=== PATIENT | female | born 1925 | race Caucasian/White ===

== ENCOUNTER 2016-06-13 15:31 | Observation (INO) ==
[2016-06-13] MEDS ORDERED: Ondansetron ODT 4 MG TAB.RAPDIS SL ONE (15:36)
[2016-06-13] MEDS ORDERED: *HR* Morphine 2 MG/ML SYRINGE IVP ONE (15:36)
[2016-06-13] MEDS ORDERED: *HR* FentaNYL (PF) 100 MCG/2 ML VIAL IVP ONE ×2 (15:51→19:59)
--- NOTE | 2016-06-13 15:53 | Emergency Department Note ---
Disposition Clinical Impression: Total bilirubin, elevated, Elevated LFTs, Elevated alkaline phosphatase level, Choledocholithiasis Disposition: Admitted As Inpatient Condition: Fair Referrals: Thony Perez Jr, MD [Primary Care Provider] - Forms: ED Satisfaction Letter Time of Disposition: 18:20 Chest Pain HPI - General Chief Complaint: ED Chest Pain Stated Complaint: CP Time Seen by Provider: 06/13/16 15:34 Source: patient, EMS Mode of arrival: EMS Limitations: no limitations Vital Signs Reviewed: Yes Nursing Notes Reviewed: Yes - History of Present Illness HPI Narrative: Patient is an 89-year-old female past medical history of hypertension, previous GI bleed, cholelithiasis. She presents today due to right upper quadrant pain that radiates into her chest. She states that she has had previous episodes of biliary colic and was told that she has cholelithiasis. She started having right upper quadrant pain that radiates into her chest around noon today. She has not eaten anything today and some breakfast. She admits to some mild nausea ; denies any vomiting, shortness of breath, sweating, fevers, change in bowel or bladder habits, burning with urination or blood in urine. She is concerned that this could be her gallbladder causing pain. Denies any previous TN, stents. She is requesting not to receive NSAIDs due to previous GI bleed, does not want dilaudid or morphine. Severity scale (1-10): 8 - Related Data Allergies Allergy/AdvReac Type Severity Reaction Status Date / Time No Known Allergies Allergy Verified 04/24/16 15:58 All systems ED: reviewed and negative except as stated. Constitutional: Denies: fever Cardiovascular: Reports: chest pain. Denies: palpitations Respiratory: Denies: cough, dyspnea, wheezes Gastrointestinal: Reports: abdominal pain, nausea. Denies: vomiting, diarrhea, constipation, hematemesis, melena, hematochezia Genitourinary: Denies: urgency, dysuria, frequency, hematuria Musculoskeletal: Denies: back pain Integumentary: Denies: rash Neurological: Denies: headache, weakness, numbness, paresthesias Chest Pain PMH - Past Medical History Medical history: Reports: GI bleed, hypertension Psychiatric history: Reports: no psych history - Social History Smoking Status: Never smoker Alcohol use: Reports: none Drug use: Reports: none Physical Exam - General Limitations: no limitations General appearance: alert, in no apparent distress - Head Head exam: atraumatic, normocephalic, normal inspection - Eye Eye exam: Present: normal appearance, PERRL, EOMI - ENT ENT exam: normal exam, mucous membranes moist - Neck Neck exam: Present: normal inspection, full ROM, trachea midline. Absent: tenderness - Chest Chest inspection: Present: normal inspection, symmetric chest wall rise - Respiratory Respiratory exam: Present: normal lung sounds bilaterally. Absent: respiratory distress, wheezes - Cardiovascular Cardiovascular exam: Present: regular rate, normal rhythm, normal heart sounds - Abdominal Exam Abdominal exam: Present: soft, tenderness (Right upper quadrant, moderate). Absent: distention, guarding, rebound, rigidity, Mesa's sign, tenderness at McBurney's Point Abdominal tenderness: Present: RUQ, moderate - Extremities Exam Extremities exam: Present: normal inspection, full ROM. Absent: tenderness, pedal edema - Neurological Exam Neurological exam: Present: alert, oriented X3 - Psychiatric Psychiatric exam: Present: normal affect, normal mood - Skin Skin exam: Present: warm, dry, intact, normal color Course Course Narrative: On exam, patient had moderate right upper quadrant tenderness, negative Mesa sign. Current concern for biliary colic versus cholecystitis. Due to radiation to her chest, also concern for cardiac etiology. Will obtain EKG, chest x-ray, troponin, lipase, LFTs. We will also obtain CT the abdomen and pelvis for further evaluation. 18:16 Trop negative, CXR negative. Chest X-Ray 06/13/16 15:35 IMPRESSION: No acute cardiopulmonary disease D/ / Titi Dillon MD / Titi Dillon MD Interpreting Provider: Titi Dillon MD Abdomen/Pelvis CT 06/13/16 15:37 IMPRESSION: 1. Since the recent comparison gallbladder ultrasound, there is new mild dilatation of the common bile duct, which measures up to 1.2 cm. This is likely secondary to noncalcified choledocholithiasis in the central CBD. Further evaluation with MRCP or ERCP is recommended. 2. Cholelithiasis. No CT evidence of acute cholecystitis. 3. A 1.8 x 2.2 cm cystic pancreatic tail lesion, which previously measured 1.0 cm in 2007. 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 A follow-up pancreatic protocol MRI is suggested. 4. Nonobstructing punctate right renal calculus. 5. Severe diverticulosis. D/ / 06/13/2016 16:57:22 Titi Dillon MD / hever Interpreting Provider: Titi Dillon MD patient has elevated total bili, direct bili, elevated LFTs, elevated alkaline phosphatase. White blood cell count within normal limits. CT scan showed likely choledocolithiasis with widening of the common bile duct 1.[address] Eduardo was consulted and he has agreed to accept the patient to his service. We will likely perform cholecystectomy and may consult GI if there is any suspection of any further stones in CBD that cannot be removed. Patient informed and agreeable with this plan. Vital Signs Temperature 97.4 F L 06/13/16 15:32 Pulse Rate 77 06/13/16 15:32 Respiratory Rate 18 06/13/16 15:32 Blood Pressure 186/89 06/13/16 15:32 O2 Sat by Pulse Oximetry 95 06/13/16 15:32 Temperature 97.4 F L 06/13/16 15:32 Pulse Rate 81 06/13/16 18:13 Respiratory Rate 15 06/13/16 18:13 Blood Pressure 159/89 06/13/16 18:13 O2 Sat by Pulse Oximetry 96 06/13/16 18:13 Oxygen Delivery Oxygen Delivery Room Air Chest Pain - MDM Narrative Medical decision making narrative: On exam, patient had moderate right upper quadrant tenderness, negative Mesa sign. Current concern for biliary colic versus cholecystitis. Due to radiation to her chest, also concern for cardiac etiology. Will obtain EKG, chest x-ray, troponin, lipase, LFTs. We will also obtain CT the abdomen and pelvis for further evaluation. 18:16 patient has elevated total bili, direct bili, elevated LFTs, elevated alkaline phosphatase. White blood cell count within normal limits. CT scan showed likely choledocolithiasis with widening of the common bile duct 1.[address] Eduardo was consulted and he has agreed to accept the patient to his service. We will likely perform cholecystectomy and may consult GI if there is any suspection of any further stones in CBD that cannot be removed. Patient informed and agreeable with this plan. - Medical Records Medical records reviewed: Yes I reviewed the patient's medical records. - Lab Data Lab results reviewed: Yes I reviewed the patient's lab results. Result diagrams: 06/13/16 16:26 06/13/16 16:26 Lab Results 06/13/16 06/13/16 06/13/16 Range/Units 16:26 16:26 16:26 WBC 7.8 (4.3-11.1) K/mcL RBC 4.95 (3.82-4.97) M/mcL Hgb 14.3 (11.5-15.4) g/dL Hct 45.4 H (35.3-44.9) % MCV 91.7 (83.0-100.0) fL MCH 28.9 (28.0-33.3) pg MCHC 31.5 L (31.6-35.5) g/dL RDW 14.2 (11.5-14.5) % Plt Count 202 (140-400) K/mcL MPV 10.7 (9.4-12.4) fL Immature Gran % 0.4 (0-4) % Seg Neutrophils % 80.1 % Lymphocytes % 10.6 % Monocytes % 8.3 % Eosinophils % 0.3 % Basophils % 0.3 % Neutrophils # 6.3 (1.6-8.9) K/mcL Lymphocytes # 0.8 (0.6-4.6) K/mcL Monocytes # 0.7 (0.0-1.3) K/mcL Eosinophils # 0.0 (0.0-0.6) K/mcL Basophils # 0.0 (0.0-0.2) K/mcL PT 11.3 (9.4-12.1) Seconds INR 1.0 APTT 35.4 (26.0-36.0) Seconds Sodium 137 (136-145) mEq/L Potassium 4.0 (3.5-4.5) mEq/L Chloride 103 (98-109) mEq/L Carbon Dioxide 27 (19-29) mEq/L BUN 16 (7-20) mg/dL Creatinine 0.86 (0.57-1.11) mg/dL Est GFR ( Amer) > 60 (> 60) Est GFR (Non-Af Amer) > 60 (> 60) BUN/Creatinine Ratio 19 (6-26) Glucose 101 H (70-99) mg/dL Calculated Osmolality 285 (280-300) Calcium 11.3 H (8.6-10.8) mg/dL Total Bilirubin (0.2-1.2) mg/dL Direct Bilirubin (0.0-0.5) mg/dL Indirect Bilirubin (0.0-1.2) mg/dL AST (5-34) Units/L ALT (0-55) Units/L Alkaline Phosphatase (38-126) Units/L Troponin I (0-0.03) ng/mL Serum Total Protein (6.0-8.3) g/dL Albumin (3.5-5.0) g/dL Globulin (2.4-3.5) g/dL Albumin/Globulin Ratio (1.1-2.2) Lipase (8-78) Units/L 06/13/16 06/13/16 06/13/16 Range/Units 16:26 16:26 16:26 WBC (4.3-11.1) K/mcL RBC (3.82-4.97) M/mcL Hgb (11.5-15.4) g/dL Hct (35.3-44.9) % MCV (83.0-100.0) fL MCH (28.0-33.3) pg MCHC (31.6-35.5) g/dL RDW (11.5-14.5) % Plt Count (140-400) K/mcL MPV (9.4-12.4) fL Immature Gran % (0-4) % Seg Neutrophils % % Lymphocytes % % Monocytes % % Eosinophils % % Basophils % % Neutrophils # (1.6-8.9) K/mcL Lymphocytes # (0.6-4.6) K/mcL Monocytes # (0.0-1.3) K/mcL Eosinophils # (0.0-0.6) K/mcL Basophils # (0.0-0.2) K/mcL PT (9.4-12.1) Seconds INR APTT (26.0-36.0) Seconds Sodium (136-145) mEq/L Potassium (3.5-4.5) mEq/L Chloride (98-109) mEq/L Carbon Dioxide (19-29) mEq/L BUN (7-20) mg/dL Creatinine (0.57-1.11) mg/dL Est GFR ( Amer) (> 60) Est GFR (Non-Af Amer) (> 60) BUN/Creatinine Ratio (6-26) Glucose (70-99) mg/dL Calculated Osmolality (280-300) Calcium (8.6-10.8) mg/dL Total Bilirubin 1.7 H (0.2-1.2) mg/dL Direct Bilirubin 1.0 H (0.0-0.5) mg/dL Indirect Bilirubin 0.7 (0.0-1.2) mg/dL AST 150 H (5-34) Units/L ALT 151 H (0-55) Units/L Alkaline Phosphatase 200 H (38-126) Units/L Troponin I 0.00 (0-0.03) ng/mL Serum Total Protein 7.5 (6.0-8.3) g/dL Albumin 3.7 (3.5-5.0) g/dL Globulin 3.8 H (2.4-3.5) g/dL Albumin/Globulin Ratio 1.0 L (1.1-2.2) Lipase 1018 H (8-78) Units/L - Radiology Data Radiology results reviewed: Yes I reviewed the patient's radiology results. Chest X-Ray 06/13/16 15:35 IMPRESSION: No acute cardiopulmonary disease D/ / Titi Dillon MD / Titi Dillon MD Interpreting Provider: Titi Dillon MD Abdomen/Pelvis CT 06/13/16 15:37 IMPRESSION: 1. Since the recent comparison gallbladder ultrasound, there is new mild dilatation of the common bile duct, which measures up to 1.2 cm. This is likely secondary to noncalcified choledocholithiasis in the central CBD. Further evaluation with MRCP or ERCP is recommended. 2. Cholelithiasis. No CT evidence of acute cholecystitis. 3. A 1.8 x 2.2 cm cystic pancreatic tail lesion, which previously measured 1.0 cm in 2008. 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 A follow-up pancreatic protocol MRI is suggested. 4. Nonobstructing punctate right renal calculus. 5. Severe diverticulosis. D/ / 06/13/2016 16:57:22 Titi Dillon MD / hever Interpreting Provider: Titi Dillon MD - EKG Data EKG attestation: Yes I reviewed and interpreted this EKG. EKG results narrative: 06/13/2016 at 15:42. Normal sinus rhythm. Rate 78. OH 190. QRS 91. QTC 382. Normal axis. No acute ST elevation or depression. RSR prime in lead 3. [place] Situation: Demographics, MOA Background: Presenting Complaint, Relevant PMH, Meds, & Allergies Assessment: Vital Signs, Course and respsone to treatment, Exam Concerns, Patient/Family Expectation, Pertinant Lab Results, Outstanding Labs Recommendation: Barrier(s) to disposition, Recommendation based on pending studies, treatments, or consults [place] Report Given to: Dr. Jayce Mora Repor Time: 18:20
[2016-06-13 16:56] LABS: Basophils % 0.3 %; Eosinophils % 0.3 %; Hematocrit 45.4 % (35.3-44.9); Hemoglobin 14.3 g/dL (11.5-15.4); Immature Granulocytes % 0.4 % (0-4); Lymphocytes # 0.8 K/mcL (0.6-4.6); Lymphocytes % 10.6 %; Mean Corpuscular HGB Conc 31.5 g/dL (31.6-35.5); Mean Corpuscular Hemoglobin 28.9 pg (28.0-33.3); Mean Corpuscular Volume 91.7 fL (83.0-100.0); Mean Platelet Volume 10.7 fL (9.4-12.4); Monocytes # 0.7 K/mcL (0.0-1.3); Monocytes % 8.3 %; Neutrophils # 6.3 K/mcL (1.6-8.9); Platelet Count 202 K/mcL (140-400); Red Blood Count 4.95 M/mcL (3.82-4.97); Red Cell Distribution Width 14.2 % (11.5-14.5); Segmented Neutrophils % 80.1 %
[2016-06-13 17:17] LABS: BUN/Creatinine Ratio 19 (6-26); Blood Urea Nitrogen 16 mg/dL (7-20); Calcium 11.3 mg/dL (8.6-10.8); Carbon Dioxide 27 mEq/L (19-29); Chloride 103 mEq/L (98-109); Glucose 101 mg/dL (70-99); Osmolality,Calculated 285 (280-300); Sodium 137 mEq/L (136-145); eGFR For African Americans > 60 (> 60); eGFR For Non-African Americans > 60 (> 60)
[2016-06-13 17:30] LABS: Prothrombin Time 11.3 Seconds (9.4-12.1)
[2016-06-13 17:32] LABS: Activated Partial Thrombo Time 35.4 Seconds (26.0-36.0)
[2016-06-13 17:50] LABS: Albumin 3.7 g/dL (3.5-5.0); Bilirubin,Indirect 0.7 mg/dL (0.0-1.2); Bilirubin,Total 1.7 mg/dL (0.2-1.2); Globulin 3.8 g/dL (2.4-3.5); Total Protein 7.5 g/dL (6.0-8.3)
[2016-06-13] MEDS ORDERED: *HR* HYDROcodone/Acet 5/325 mg TABLET PO PRN (20:06)
[2016-06-13] MEDS ORDERED: *HR* Morphine 2 MG/ML SYRINGE IVP PRN (20:06)
[2016-06-13] MEDS ORDERED: Naloxone 0.4 MG/ML INJ IVP PRN (20:06)
[2016-06-13] MEDS ORDERED: Ondansetron ODT 4 MG TAB.RAPDIS SL PRN (20:06)
[2016-06-13] MEDS ORDERED: 0.9 % Sodium Chloride 1,000 ML IVC SCH (20:15)
[2016-06-13] MEDS ORDERED: traZODone 50 MG TABLET PO SCH (21:00)
[2016-06-14 04:22] LABS: Basophils % 0.2 %; Eosinophils % 0.5 %; Hematocrit 43.5 % (35.3-44.9); Hemoglobin 13.7 g/dL (11.5-15.4); Immature Granulocytes % 0.5 % (0-4); Lymphocytes # 0.9 K/mcL (0.6-4.6); Lymphocytes % 15.1 %; Mean Corpuscular HGB Conc 31.5 g/dL (31.6-35.5); Mean Corpuscular Hemoglobin 28.8 pg (28.0-33.3); Mean Corpuscular Volume 91.6 fL (83.0-100.0); Mean Platelet Volume 10.1 fL (9.4-12.4); Monocytes # 0.6 K/mcL (0.0-1.3); Monocytes % 9.7 %; Neutrophils # 4.3 K/mcL (1.6-8.9); Platelet Count 195 K/mcL (140-400); Red Blood Count 4.75 M/mcL (3.82-4.97); Red Cell Distribution Width 14.1 % (11.5-14.5)
[2016-06-14 04:49] LABS: BUN/Creatinine Ratio 17 (6-26); Blood Urea Nitrogen 13 mg/dL (7-20); Calcium 10.4 mg/dL (8.6-10.8); Carbon Dioxide 28 mEq/L (19-29); Chloride 105 mEq/L (98-109); Glucose 98 mg/dL (70-99); Osmolality,Calculated 290 (280-300); Potassium 3.9 mEq/L (3.5-4.5); Sodium 140 mEq/L (136-145); eGFR For African Americans > 60 (> 60); eGFR For Non-African Americans > 60 (> 60)
[2016-06-14] MEDS ORDERED: *HR* Heparin 5,000 UNIT/ML VIAL SQ SCH (06:00)
--- NOTE | 2016-06-14 07:05 | General Surg History&Physical ---
Date of Encounter: 06/14/16 Time of Encounter: 06:50 Assessment and Plan (1) Gallstone pancreatitis Current Visit: Yes Status: Acute The assessment and plan as outlined above was discussed with the patient and/or family members who expressed understanding and agreement. All questions were answered. The patient will require laparoscopic cholecystectomy and cholangiogram when her amylase and lipase values normalized. The bilirubin is 1.7. This may be transient or represent fixed choledocholithiasis. We will obtain a cholangiogram at time of laparoscopic cholecystectomy to assess the common bile duct. History of Present Illness Chief complaint: Abdominal pain HPI: Ms. Brown is a 89 year old female Was had multiple episodes of epigastric pain radiating through to her back. She experiences nausea but not vomiting. Over the last several months she has had increasing episodes. These last several hours. Yesterday she developed an epigastric pain episode radiating through to her back associated with nausea that did not resolve and she sought evaluation in the emergency department she was found to have cholelithiasis and a dilated common bile duct. She also had elevated lipase. She is admitted to the hospital with the diagnosis of gallstone pancreatitis. She denies shakes chills or fever. She has not previously had biliary surgery. She denies weight loss. Past Med Surg Social Fam HX - Past Medical History Medical history: GI bleed, hypertension, osteoporosis Psychiatric history: no psych history - Past Surgical History Surgical History: hip replacement (Hip fusion at age 21), hysterectomy, other - Social History Smoking Status: Never smoker Smokeless Tobacco Status: No Alcohol use: none Drug use: none - Family History Mother Living Status: Age at : 82 Cause of : Heart trouble Hx Family Cardiac Disorders: Yes (CHF, HTN) Hx Family Respiratory Disorders: No Hx Family Cancer: No Hx Family GI Disorders: No Hx Family Genitourinary Disorders: No Hx Family Endocrine Disorder: No Hx Family Musculoskeletal Disorders: No Hx Family Neuromuscular Disorders: No Hx Family Neurologic Disorders: No Hx Family HEENT Disorders: No Hx Family Autoimmune Disorders: No Hx Family Reproductive Disorders: No Hx Family Psychosocial Disorders: Yes (depression) Hx Family Medical Disorders: No Medications and Allergies Amlodipine Besylate 10 mg PO DAILY 06/13/16 [History] Furosemide [Lasix] 20 mg PO DAILY 06/13/16 [History] Losartan Potassium [Cozaar] 50 mg PO DAILY 06/13/16 [History] Meclizine HCl [Verticalm] 25 mg PO TID PRN 06/13/16 [History] Metoprolol [Lopressor] 25 mg PO BID 06/13/16 [History] Pantoprazole Sodium [Protonix] 40 mg PO DAILY 06/13/16 [History] TraZODone 50 mg PO HS 06/13/16 [History] Allergies No Known Allergies Allergy (Verified 04/24/16 15:58) Review of Systems All systems PM: A 10-system review of systems was performed and is negative for pertinent findings except as documented above in the HPI. General Surgery Exam Initial Vital Signs Temp Pulse Resp BP Pulse Ox 97.4 F L 77 18 186/89 95 06/13/16 15:32 06/13/16 15:32 06/13/16 15:32 06/13/16 15:32 06/13/16 15:32 - General physical appearance well developed, well nourished, no distress - Neck no masses, no bruits, trachea midline, no lymphadectomy, no venous distension - Respiratory normal expansion, normal respiratory effort, clear to percussion, clear to auscultation - Cardiovascular Cardiovascular exam: Present: RRR, no murmurs/rubs/gallops - Abdomen Abdomen general surgery: Present: bowel sounds present, soft, non tender - Neurologic Present: CN 2-12 grossly intact, normal coordination, normal sensation - Psychiatric Psychiatric general surgery: Present: appropriate, oriented to person, oriented to place, oriented to time, speech is normal, memory intact Results - Labs 06/14/16 03:50 06/14/16 03:50 Abnormal lab results MCHC 31.5 g/dL (31.6-35.5) L 06/14/16 03:50 POC Glucose 93 (58-89) H 06/14/16 05:56 Total Bilirubin 1.7 mg/dL (0.2-1.2) H 06/13/16 16:26 Direct Bilirubin 1.0 mg/dL (0.0-0.5) H 06/13/16 16:26 AST 150 Units/L (5-34) H 06/13/16 16:26 ALT 151 Units/L (0-55) H 06/13/16 16:26 Alkaline Phosphatase 200 Units/L (38-126) H 06/13/16 16:26 Globulin 3.8 g/dL (2.4-3.5) H 06/13/16 16:26 Albumin/Globulin Ratio 1.0 (1.1-2.2) L 06/13/16 16:26 Lipase 1018 Units/L (8-78) H 06/13/16 16:26 Diabetes panel 06/14/16 Range/Units 03:50 Sodium 140 (136-145) mEq/L Potassium 3.9 (3.5-4.5) mEq/L Chloride 105 (98-109) mEq/L Carbon Dioxide 28 (19-29) mEq/L BUN 13 (7-20) mg/dL Creatinine 0.78 (0.57-1.11) mg/dL Glucose 98 (70-99) mg/dL Calcium 10.4 (8.6-10.8) mg/dL Calcium panel 06/14/16 Range/Units 03:50 Calcium 10.4 (8.6-10.8) mg/dL Pituitary panel 06/14/16 Range/Units 03:50 Sodium 140 (136-145) mEq/L Potassium 3.9 (3.5-4.5) mEq/L Chloride 105 (98-109) mEq/L Carbon Dioxide 28 (19-29) mEq/L BUN 13 (7-20) mg/dL Creatinine 0.78 (0.57-1.11) mg/dL Glucose 98 (70-99) mg/dL Calcium 10.4 (8.6-10.8) mg/dL Adrenal panel 06/14/16 Range/Units 03:50 Sodium 140 (136-145) mEq/L Potassium 3.9 (3.5-4.5) mEq/L Chloride 105 (98-109) mEq/L Carbon Dioxide 28 (19-29) mEq/L BUN 13 (7-20) mg/dL Creatinine 0.78 (0.57-1.11) mg/dL Glucose 98 (70-99) mg/dL Calcium 10.4 (8.6-10.8) mg/dL All other labs normal.
[2016-06-14 07:08] LABS: Alanine Aminotransferase 226 Units/L (0-55); Albumin 3.3 g/dL (3.5-5.0); Alkaline Phosphatase 191 Units/L (38-126); Amylase 335 Units/L (25-125); Aspartate Amino Transferase 234 Units/L (5-34); Bilirubin,Direct 1.7 mg/dL (0.0-0.5); Bilirubin,Indirect 0.9 mg/dL (0.0-1.2); Bilirubin,Total 2.6 mg/dL (0.2-1.2); Globulin 3.4 g/dL (2.4-3.5); Lipase 472 Units/L (8-78); Total Protein 6.7 g/dL (6.0-8.3)
[2016-06-14] MEDS ORDERED: amLODIPine 5 MG TABLET PO SCH (09:00)
--- NOTE | 2016-06-14 12:11 | Anesthesia Evaluation PreOp ---
Date of Encounter: 06/14/16 Time of Encounter: 12:09 - Past History Planned Operation: Lap Karie re: gallstone pancreatiis Cardiac History: HTN (maintaine don Norvasc, Lasix, Cozaar, Metoprolol) Pulmonary History: Denies Any Significant HX FIRE HOSE CURER History: Other (Vertigo maitnained on Meclizine. Anxiety/Depression maintained on Trazadone) Other Medical History: GERD (Hx of GIB. Maintained on Protonix), Other ( Osteoporosis) Anesthesia History: No Prior Anesthetic Complications, Past Anesthesia (Hip replacement (hip fusion age 21), Hyster) Alcohol Use: none Drug use: none Medications and Allergies Amlodipine Besylate 10 mg PO DAILY 06/13/16 [History] Furosemide [Lasix] 20 mg PO DAILY 06/13/16 [History] Losartan Potassium [Cozaar] 50 mg PO DAILY 06/13/16 [History] Meclizine HCl [Verticalm] 25 mg PO TID PRN 06/13/16 [History] Metoprolol [Lopressor] 25 mg PO BID 06/13/16 [History] Pantoprazole Sodium [Protonix] 40 mg PO DAILY 06/13/16 [History] TraZODone 50 mg PO HS 06/13/16 [History] Allergies No Known Allergies Allergy (Verified 04/24/16 15:58) - Meds/Allergy Pre-op Review Medications Reviewed: Yes Allergies Reviewed: Yes ("No Meds that make me bleed" ex: ASA, Ibuprofen. [GIB]) Beta Blockers on Current Med List: Yes (Metoprolol) If Beta Blockers taken, Date/Time (Last Dose taken): 06/13/16 @ 6283 Anesthesia Results - Labs 06/14/16 03:50 06/14/16 03:50 Laboratory Tests 06/13/16 06/14/16 06/14/16 16:26 03:50 11:14 PT 11.3 INR 1.0 APTT 35.4 Sodium 140 Potassium 3.9 Chloride 105 Carbon Dioxide 28 BUN 13 Creatinine 0.78 Est GFR (Non-Af Amer) > 60 POC Glucose 79 - Imaging EKG: image reviewed (78 SR NSR) Anesthesia Exam Vital Signs Temp Pulse Resp BP Pulse Ox 06/14/16 09:52 98.7 F 73 16 147/76 97 06/14/16 03:30 97.4 F L 58 16 156/76 93 06/14/16 00:26 97.6 F 73 16 145/80 93 06/13/16 20:40 97.7 F 89 15 175/94 96 06/13/16 19:33 16 159/89 06/13/16 18:13 81 15 159/89 96 06/13/16 17:11 76 16 172/88 96 06/13/16 15:32 97.4 F L 77 18 186/89 97 Intake and Output 06/13/16 06/14/16 06/14/16 23:59 07:59 15:59 Intake Total 0 / 0 0 / 0 Output Total 450 / 450 200 / 200 300 / 300 Balance -450 / -450 -200 / -200 -300 / -300 Intake: Oral 0 / 0 0 / 0 Output: Urine 450 / 450 200 / 200 300 / 300 Other: # Voids 1 Weight 70.845 kg 70.789 kg Blood Glucose* 93 79 Patient Weight 06/14/16 23:59 Weight 70.789 kg Height: 5'8" Weight: 156# BMI = 24 NPO (# of Hours): MNoc - HEENT Pupil (Motor): Pupils equal, EOMI Mallampati: II Teeth: Normal Oral Opening: Greater than 3 - FIRE HOSE CURER LOC: Oriented FIRE HOSE CURER Motor: Normal RUE, Normal LUE, Normal Face, Deficit RLE ("Difficulty w/ Hips "), Deficit LLE FIRE HOSE CURER Sensory: Normal: RUE, LUE, RLE, LLE, Face - Cardiac Rhythm: Regular Murmur: None - Pulmonary Breath Sounds: bilateral Clear Respiratory Effort: Symmetrical Anesthesia Assess/Plan ASA Score: 2 (HTN, Osteoporosis) Anes Supervising Prov Stmt: Pt seen/evaluated, R&B discussed, questions answered and consent obtained. Emanuel Rico MD
[2016-06-14] MEDS ORDERED: Acetaminophen IV 1,000 MG/100 ML INFUS..BTL ONE (13:09)
[2016-06-14] MEDS ORDERED: *HR* Rocuronium Bromide 50 MG/5 ML VIAL ONE (13:12)
[2016-06-14] MEDS ORDERED: Lidocaine -MPF 2% 2 ML VIAL ONE (13:12)
[2016-06-14] MEDS ORDERED: *HR* Propofol 200 MG/20 ML VIAL IVP ONE (13:12)
[2016-06-14] MEDS ORDERED: Dexamethasone 4 MG/ML VIAL ONE (13:12)
[2016-06-14] MEDS ORDERED: *HR* Succinylcholine 200 MG/10 ML VIAL IVP ONE (13:12)
[2016-06-14] MEDS ORDERED: *HR* FentaNYL (PF) 100 MCG/2 ML VIAL ONE ×2 (13:12→13:55)
[2016-06-14] MEDS ORDERED: Ondansetron 4 MG/2 ML VIAL ONE (13:12)
[2016-06-14] MEDS ORDERED: Neostigmine Methylsulfate 3 MG/3 ML SYRINGE ONE (13:12)
[2016-06-14] MEDS ORDERED: Lidocaine -MPF 4% 5 ML AMPUL ONE (13:15)
[2016-06-14] MEDS ORDERED: Ondansetron 4 MG/2 ML VIAL IVP ONE (13:24)
[2016-06-14] MEDS ORDERED: Dexamethasone 4 MG/ML VIAL IVP ONE (13:24)
[2016-06-14] MEDS ORDERED: *HR* Morphine 2 MG/ML SYRINGE IVP PRN ×2 (13:24→15:34)
[2016-06-14] MEDS ORDERED: *HR* Labetalol 100 MG/20 ML MDV IVP PRN (13:24)
[2016-06-14] MEDS ORDERED: CefOXitin 2,000 MG VIAL IVPB ONE (13:34)
--- NOTE | 2016-06-14 14:25 | Operative Note ---
Date of procedure: 06/14/16 Pre-op diagnosis: Gallstone pancreatitis and obstructive jaundice Post-op diagnosis: other (Cholelithiasis and gallstone pancreatitis) Procedure: Laparoscopic cholecystectomy, cholangiogram Anesthesia: STANLEY Surgeon: Rolf Eduardo Estimated blood loss (cc): 30 Specimen: Gallbladder and contents Condition: stable Disposition: PACU Procedure in Detail: Laparoscopic cholecystectomy and intraoperative cholangiogram Operative procedure after informed consent and appropriate patient identification timeout the patient's take major operating suite and placed supine position given adequate general endotracheal anesthesia the abdomen is prepped and draped in sterile fashion utilizing ChloraPrep standard draping techniques timeout was taken patient is identified. I made a vertical midline incision below the umbilicus dissected down to level of fascia there are 2 traction stitches placed in the abdominal cavity was entered visually. A Ko trocar was placed in the abdomen and the abdomen was insufflated to 15 mmHg pressure CO2 the gallbladder was visualized. A placement 11 port in the subxiphoid area and 2 5 mm ports in the subcostal area. The gallbladder was grasped and elevated. A variety of blunt and sharp dissection techniques were used to isolate the cystic duct and cystic artery. The cystic artery was controlled with 2 surgical clips proximally and one distally and it was divided I placed a surgical clip on the neck the gallbladder and obtained an intraoperative cholangiogram using 10 mL of Isovue. Intraoperative cholangiogram was normal. The cholangiocatheter was removed and the cystic duct was controlled with 2 surgical clips proximally and was divided the gallbladder was removed from the gallbladder fossae using electrocautery. The gallbladder was removed through the #11 port site. I replaced the #11 port and irrigated with copious amounts of antibiotic containing solution. There is no evidence of bleeding or bile leak. All trochars were removed. Fascia was closed with 0 Vicryl skin with 2-0 and 4-0 Vicryl She tolerated the procedure well and was transferred to recovery in stable condition
[2016-06-14] MEDS ORDERED: Ondansetron ODT 4 MG TAB.RAPDIS SL PRN (15:34)
[2016-06-14] MEDS ORDERED: *HR* HYDROcodone/Acet 5/325 mg TABLET PO PRN (15:34)
[2016-06-14] MEDS ORDERED: Naloxone 0.4 MG/ML INJ IVP PRN (15:34)
[2016-06-14] MEDS ORDERED: 0.9 % Sodium Chloride 1,000 ML IVC SCH (15:34)
--- NOTE | 2016-06-14 18:19 | Electrocardiograph Report ---
[place] [id number] Test Date: 2016-06-13 Pat Name: Kindra Brown Department: 102 Room: 3A34 Gender: F Clay Burner: Liane : 1925 Requested By: Mik Brown Order Number: [id number] Reading MD: Mauro Blas MD Measurements Intervals [place] Rate: 78 P: 61 NH: 190 QRS: 29 QRSD: 91 T: 39 QT: 348 QTc: 382 Interpretive Statements SINUS RHYTHM Electronically Signed On 06-14-2016 18:18:06 EDT by Mauro Blas MD
[2016-06-14] MEDS: amLODIPine 5 MG TABLET PO SCH (19:16)
[2016-06-14] MEDS: *HR* Heparin 5,000 UNIT/ML VIAL SQ SCH (19:38)
[2016-06-14] MEDS ORDERED: traZODone 50 MG TABLET PO SCH (21:00)
[2016-06-15] MEDS: *HR* Heparin 5,000 UNIT/ML VIAL SQ SCH (05:57)
[2016-06-15] MEDS: amLODIPine 5 MG TABLET PO SCH (08:15)
[2016-06-15] MEDS ORDERED: amLODIPine 5 MG TABLET PO SCH (09:00)
[2016-06-15] MEDS ORDERED: Acetaminophen 325 MG TABLET PO PRN (12:53)
[2016-06-15 14:27] VITALS: BP 146/71
--- NOTE | 2016-06-15 14:48 | Discharge Summary ---
<Sugey Mathew Ray - Last Filed: 06/15/16 14:45> Date of Encounter: 06/15/16 Time of Encounter: 14:46 - Discharge Diagnosis (1) Gallstone pancreatitis Priority: Primary Status: Resolved (2) Elevated LFTs Priority: Secondary Status: Acute - Discharge Medications Home Medications: Amlodipine Besylate 10 mg PO DAILY 06/13/16 [History] Furosemide [Lasix] 20 mg PO DAILY 06/13/16 [History] Losartan Potassium [Cozaar] 50 mg PO DAILY 06/13/16 [History] Meclizine HCl [Verticalm] 25 mg PO TID PRN 06/13/16 [History] Metoprolol [Lopressor] 25 mg PO BID 06/13/16 [History] Pantoprazole Sodium [Protonix] 40 mg PO DAILY 06/13/16 [History] TraZODone 50 mg PO HS 06/13/16 [History] Acetaminophen [Tylenol] 650 mg PO Q6HR PRN #0 tablet 06/15/16 [Rx] Allergies/Adverse Reactions: Allergies No Known Allergies Allergy (Verified 04/24/16 15:58) General Surgery Exam Initial Vital Signs Temp Pulse Resp BP Pulse Ox 97.4 F L 77 18 186/89 95 06/13/16 15:32 06/13/16 15:32 06/13/16 15:32 06/13/16 15:32 06/13/16 15:32 - General physical appearance well developed, well nourished, no distress - Eyes normal ocular movement - ENT normal mucosa, atraumatic, normocephalic - Neck trachea midline - Respiratory normal respiratory effort, clear to auscultation - Cardiovascular Cardiovascular exam: Present: RRR, 15, 16 - Abdomen Abdomen general surgery: Present: bowel sounds present, soft, tender (Expected postoperative tenderness) - Incision Incision: Present: clean and dry, intact - Integumentary Integumentary general surgery: Present: warm and dry - Neurologic Present: CN 2-12 grossly intact - Psychiatric Psychiatric general surgery: Present: appropriate, oriented to person, oriented to place, oriented to time, speech is normal, memory intact Date of admission: 06/13/16 18:56 Primary care physician: Thony Perez Jr, MD Consults: 06/14/16 00:37 Consult to Teacher Advisor [CONS] Routine Reason for SW Consult: pt verbalizes need for SS consult to assist her with Home Health when d/c Discharging clinician: Rolf Eduardo (Robbie Mathew) Anticipated date of discharge: 06/15/16 - Patient Status Disposition: Home Health Service Condition: Good Functional capacity at discharge: independent ambulation Overall status at discharge: patient is progressing back to baseline - Discharge Instructions Follow Up With: Aurea Ceja CNP [Partnered Physician] - 06/21/16 10:40 am Sugey Mathew CNP [Advanced Practice Nurse] - 06/26/16 9:15 am (Surgery follow-up) Additional Instructions: #1 may shower, no tub bath for 2 weeks #2 wash incisions with soap and water and pat dry daily #3 no lifting, pushing, pulling more than 15 pounds for the next 2 weeks #4 no driving until off narcotics for 24 hours and able to safely react in the car #5 may climb stairs - Diet and Activity Activity: other (See additional instructions above) Diet: advance to your usual diet - Hospital Course Hospital course: Ms. Brown is a 89 year old female presented to the hospital with abdominal pain and was found to have gallstone pancreatitis. She was treated with supportive care while awaiting resolution of her pancreatitis. With resolution of her pancreatitis, she was taken to the operating room per Dr. Eduardo for laparoscopic cholecystectomy with cholangiogram. On postoperative day #1, she is tolerating her diet without nausea or vomiting, vital signs are stable and she is afebrile, pain is well-controlled, she is voiding and ambulating without difficulty. We will begin discharge planning at this time and plan for outpatient follow-up in the next 10-14 days. - Time Spent with Patient Total time spent providing and/or coordinating discharge services: Less than 30 minutes - Impressions ITS Impressions Cholangiogram,Operative 06/14/16 00:00 IMPRESSION: 1. 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 Underlying malignancy cannot entirely be excluded. Tissue sampling may be of benefit for further evaluation. 2. Intra and extrahepatic biliary ductal dilatation. D/ / 06/14/2016 14:15:44 Joel Gamez MD / Betzy Goetz Interpreting Provider: Joel Gamez MD - Attending Attestation I examined this patient and my medical decision-making was reviewed with the [employer]/PA/Advanced Practice Nurse/Resident Physician. I agree with the documented findings, disposition and treatment plan as described except to the extent set forth below. <Rofl Eduardo - Last Filed: 06/16/16 06:53> Date of Encounter: 06/16/16 - Discharge Diagnosis (1) Gallstone pancreatitis Status: Resolved General Surgery Exam Initial Vital Signs Temp Pulse Resp BP Pulse Ox 97.4 F L 77 18 186/89 95 06/13/16 15:32 06/13/16 15:32 06/13/16 15:32 06/13/16 15:32 06/13/16 15:32 Date of admission: 06/13/16 18:56 Primary care physician: Thony Perez Jr, MD Consults: 06/14/16 00:37 Consult to Teacher Advisor [CONS] Routine Reason for SW Consult: pt verbalizes need for SS consult to assist her with Home Health when d/c - Hospital Course Hospital course: Ms. Brown is a 89 year old female - Time Spent with Patient Total time spent providing and/or coordinating discharge services: - Impressions ITS Impressions Cholangiogram,Operative 06/14/16 00:00 IMPRESSION: 1. 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 Underlying malignancy cannot entirely be excluded. Tissue sampling may be of benefit for further evaluation. 2. Intra and extrahepatic biliary ductal dilatation. D/ / 06/14/2016 14:15:44 Joel Gamez MD / Betzy Goetz Interpreting Provider: Joel Gamez MD - Attending Attestation The patient is seen and evaluated and ready for discharge Rolf Eduardo MD FACS
--- NOTE | 2016-06-15 14:52 | Physician Discharge Referral ---
<Sugey Mathew - Last Filed: 06/15/16 14:51> Home Health/Hosp Referral Info Transfer to: Home Health Attending Provider: Dr. Rolf Eduardo Provider in Charge Post Discharge: PCP - Diagnosis (1) Gallstone pancreatitis Priority: Primary Status: Resolved (2) Elevated LFTs Priority: Secondary Status: Acute - Respiratory Orders None - Dressing/Wound Care Site: Abdomen Type of Dressing/Treatments w/Frequency: Evan with soap and water in the shower and pat dry daily - Diet/Nutrition Diet/Nutrition Orders: Regular - Activity Activity Orders: Up ad sierra, Ambulate - Services Needed Following services are medically necessary services: Nursing, Home Health Aide, Physical Therapy, Occupational Therapy - Transfer Medications Home Medications: Amlodipine Besylate 10 mg PO DAILY 06/13/16 [History] Furosemide [Lasix] 20 mg PO DAILY 06/13/16 [History] Losartan Potassium [Cozaar] 50 mg PO DAILY 06/13/16 [History] Meclizine HCl [Verticalm] 25 mg PO TID PRN 06/13/16 [History] Metoprolol [Lopressor] 25 mg PO BID 06/13/16 [History] Pantoprazole Sodium [Protonix] 40 mg PO DAILY 06/13/16 [History] TraZODone 50 mg PO HS 06/13/16 [History] Acetaminophen [Tylenol] 650 mg PO Q6HR PRN #0 tablet 06/15/16 [Rx] Allergies/Adverse Reactions: Allergies No Known Allergies Allergy (Verified 04/24/16 15:58) Certification: Further, I certify that my clinical findings support that this patient is homebound (i.e. absences from home require considerable and taxing effort and are for medical reasons or spiritism services or infrequently or short duration when for other reasons) because: Homebound Reason: Patient requires assistance of a person or device to safely leave home, Leaving home requires considerable and taxing effort due to condition Attestation: My signature below is to certify that this patient is under my care and that I, or nurse practitioner, or a physician's assistant store manager operations working with me, has a face-to -face encounter with this patient. <Rolf Eduardo - Last Filed: 06/16/16 06:54> - Diagnosis (1) Gallstone pancreatitis Status: Resolved - Respiratory Orders Smoking Cessation: Smoking cessation has been advised. For more information, call the [place] Tobacco Quit Line at 7-785-NDRQ-NOW. Certification: Further, I certify that my clinical findings support that this patient is homebound (i.e. absences from home require considerable and taxing effort and are for medical reasons or spiritism services or infrequently or short duration when for other reasons) because: Attestation: My signature below is to certify that this patient is under my care and that I, or nurse practitioner, or a physician's assistant store manager operations working with me, has a face-to -face encounter with this patient. The patient is seen and evaluated and is ready for discharge Rolf Eduardo MD FACS
== END 2016-06-15 16:53 | disposition home health service (06) ==
LOC: 3ANU 15:31 → EMEROO 15:31 → 3ANU 20:22
PROVIDERS: ADMIT Surgery; ATTEND Surgery

== ENCOUNTER 2017-06-12 15:59 | Observation (INO) ==
--- NOTE | 2017-06-12 16:11 | Emergency Department Note ---
Disposition Clinical Impression: Chest pain Disposition: Admitted As Inpatient Condition: Good Chest Pain HPI - General Chief Complaint: ED Chest Pain Stated Complaint: chest pain Time Seen by Provider: 06/12/17 16:09 Source: patient, family Limitations: no limitations Vital Signs Reviewed: Yes Nursing Notes Reviewed: Yes - History of Present Illness HPI Narrative: Patient is an 89-year-old female past medical history of GI bleed, hypertension , osteoporosis that presents for chest pain for the past 2 days. Patient said chest pain started yesterday morning. Was located across her entire chest.She denies any numbness or tingling left arm. The pain was pressure-like and lasted the entire day. Patient says she took an aspirin and had the pain relieved shortly afterwards. She said the pain started again this morning and lasted for about a minute and was located more on the back of her left shoulder. Both chest pain symptoms occurred while the patient was at rest. She does say that she has been short of breath for the past week. She denies any previous history of [place]. She denies any heart palpitations during the events. She does admit to a headache but denies any vision blurriness. She denies any swelling. Denies any recent illness, fever, or chills. Severity scale (1-10): 5 - Related Data Home Medications Medication Instructions Recorded Confirmed Amlodipine Besylate 10 mg PO DAILY 06/13/16 06/12/17 Losartan Potassium [Cozaar] 50 mg PO DAILY 06/13/16 06/12/17 Metoprolol [Lopressor] 25 mg PO BID 06/13/16 06/12/17 traZODone [TraZODone] 50 mg PO HS 06/13/16 06/12/17 Docusate Sodium [Dok] 200 mg PO HS 06/12/17 06/12/17 Allergies Allergy/AdvReac Type Severity Reaction Status Date / Time No Known Allergies Allergy Verified 06/12/17 18:50 Constitutional: Denies: fever, chills, weakness, weight change Cardiovascular: Reports: chest pain. Denies: palpitations, dyspnea on exertion , orthopnea, edema, syncope Respiratory: Reports: dyspnea. Denies: cough, wheezes Gastrointestinal: Reports: nausea. Denies: abdominal pain, vomiting, diarrhea, constipation, hematemesis, melena, hematochezia Chest Pain PMH - Past Medical History Medical history: Reports: GI bleed, hypertension, osteoporosis Surgical history: Reports: hip replacement (Hip fusion at age 21), hysterectomy , other Psychiatric history: Reports: no psych history - Social History Smoking Status: Never smoker Alcohol use: Reports: none Drug use: Reports: none Physical Exam - General Limitations: no limitations General appearance: alert, in no apparent distress - Chest Chest inspection: Present: normal inspection, symmetric chest wall rise. Absent : tenderness - Respiratory Respiratory exam: Present: normal lung sounds bilaterally. Absent: wheezes - Cardiovascular Cardiovascular exam: Present: regular rate, normal rhythm, normal heart sounds, +S1, +S2. Absent: +S3, +S4 - Abdominal Exam Abdominal exam: Present: soft, Non-Tender, normal bowel sounds. Absent: tenderness, distention, guarding, rebound, rigidity - Extremities Exam Extremities exam: Present: normal inspection, full ROM, normal capillary refill. Absent: tenderness, pedal edema, calf tenderness Course Course Narrative: Patient presents with atypicall type chest pain symptoms. EKG shows normal sinus rhythm with nonspecific ST depression in V5 and otherwise no acute ischemic changes when compared to prior EKG. Tropnin was negative. Given her HEART score of 4, we feel it would be appropriate for patient to be admitted for further evaluation and observation. Spoke to hospitalist Dr. Bustillo who agreed to admit the patient. Vital Signs Temperature 97.8 F 06/12/17 16:00 Pulse Rate 69 06/12/17 16:00 Respiratory Rate 18 06/12/17 16:00 Blood Pressure 184/94 06/12/17 16:00 O2 Sat by Pulse Oximetry 96 06/12/17 16:00 Temperature 97.9 F 06/12/17 22:38 Pulse Rate 67 06/12/17 22:38 Respiratory Rate 15 06/12/17 22:38 Blood Pressure 139/77 06/12/17 22:38 O2 Sat by Pulse Oximetry 96 06/12/17 22:38 Oxygen Delivery Oxygen Delivery Room Air Chest Pain - Lab Data Result diagrams: 06/12/17 16:23 06/12/17 16:21 Lab Results 06/12/17 06/12/17 06/12/17 Range/Units 16:21 16:23 16:23 WBC 6.5 (4.3-11.1) K/mcL RBC 5.16 H (3.82-4.97) M/mcL Hgb 16.0 H (11.5-15.4) g/dL Hct 49.2 H (35.3-44.9) % MCV 95.3 (83.0-100.0) fL MCH 31.0 (28.0-33.3) pg MCHC 32.5 (31.6-35.5) g/dL RDW 13.1 (11.5-14.5) % Plt Count 186 (140-400) K/mcL MPV 10.3 (9.4-12.4) fL Immature Gran % 0.3 (0-4) % Seg Neutrophils % 73.7 % Lymphocytes % 18.3 % Monocytes % 6.9 % Eosinophils % 0.5 % Basophils % 0.3 % Neutrophils # 4.8 (1.6-8.9) K/mcL Lymphocytes # 1.2 (0.6-4.6) K/mcL Monocytes # 0.5 (0.0-1.3) K/mcL Eosinophils # 0.0 (0.0-0.6) K/mcL Basophils # 0.0 (0.0-0.2) K/mcL PT 12.0 (9.4-12.1) Seconds INR 1.1 APTT 35.1 (26.0-36.0) Seconds Sodium 138 (136-145) mEq/L Potassium 4.2 (3.5-5.1) mEq/L Chloride 103 (98-107) mEq/L Carbon Dioxide 26 (23-29) mEq/L BUN 21 (8-23) mg/dL Creatinine 0.86 (0.60-1.20) mg/dL Est GFR ( Amer) > 60 (> 60) Est GFR (Non-Af Amer) > 60 (> 60) BUN/Creatinine Ratio 24 (6-26) Glucose 95 (70-105) mg/dL Calculated Osmolality 289 (280-300) Calcium 11.1 H (8.6-10.3) mg/dL Troponin I < 0.03 (< 0.04) ng/mL - EKG Data EKG attestation: Yes I reviewed and interpreted this EKG. EKG shows normal: sinus rhythm, axis, intervals, QRS complexes, ST-T waves Rate: normal Rhythm: NSR [place]/QRS: normal Heart Score - Score History: Slightly Suspicious EKG: Non Specific repolarisation Disturbance Age: Greater than 65 Risk Factors: 1-2 risk factors Troponin: Less than normal limit HEART Score Total: 4 Attestation Statement - Attestation Attestation: I, Cl Flores, examined this patient and my medical decision-making was reviewed with the [employer]AL[employer]ISITION DIRECTOR/PA/Advanced Practice Nurse/Resident Physician. I agree with the documented findings, disposition and treatment plan as described except to the extent set forth below. 89-year-old female presents emergency Department with acute onset chest pain. Patient states the chest pain is intermittent, associated with nausea. Never had a cardiac evaluation in the past. Initial troponin negative. EKG did not show evidence of STEMI. Patient has a heart score of 4. She will be admitted to the hospitalist for further care and evaluation.
[2017-06-12 16:44] LABS: Basophils % 0.3 %; Eosinophils % 0.5 %; Hematocrit 49.2 % (35.3-44.9); Immature Granulocytes % 0.3 % (0-4); Lymphocytes # 1.2 K/mcL (0.6-4.6); Lymphocytes % 18.3 %; Mean Corpuscular HGB Conc 32.5 g/dL (31.6-35.5); Mean Corpuscular Volume 95.3 fL (83.0-100.0); Mean Platelet Volume 10.3 fL (9.4-12.4); Monocytes # 0.5 K/mcL (0.0-1.3); Monocytes % 6.9 %; Neutrophils # 4.8 K/mcL (1.6-8.9); Platelet Count 186 K/mcL (140-400); Red Blood Count 5.16 M/mcL (3.82-4.97); Red Cell Distribution Width 13.1 % (11.5-14.5); Segmented Neutrophils % 73.7 %
[2017-06-12 16:55] LABS: Troponin I < 0.03 ng/mL (< 0.04)
[2017-06-12 16:59] LABS: INR 1.1
[2017-06-12 17:01] LABS: Activated Partial Thrombo Time 35.1 Seconds (26.0-36.0)
[2017-06-12 17:33] LABS: BUN/Creatinine Ratio 24 (6-26); Blood Urea Nitrogen 21 mg/dL (8-23); Calcium 11.1 mg/dL (8.6-10.3); Carbon Dioxide 26 mEq/L (23-29); Chloride 103 mEq/L (98-107); Glucose 95 mg/dL (70-105); Osmolality,Calculated 289 (280-300); Potassium 4.2 mEq/L (3.5-5.1); Sodium 138 mEq/L (136-145); eGFR For African Americans > 60 (> 60); eGFR For Non-African Americans > 60 (> 60)
[2017-06-12] MEDS ORDERED: Acetaminophen 325 MG TABLET PO PRN (20:42)
[2017-06-12] MEDS ORDERED: Naloxone 0.4 MG/ML INJ IVP PRN (20:42)
--- NOTE | 2017-06-12 20:52 | Internal Med History&Physical ---
Date of Encounter: 06/12/17 Time of Encounter: 20:00 Internal Medicine - H&P: HPI Chief complaint: Chest pressure Admitted From: Home Plans for Post Hospital Care: Home History of present illness: Ms. Brown is a 89 year old female present to ER for chest pressure since yesterday morning. Past medical history is significant for hypertension, diverticulitis, kidney stone. Patient said she started to have chest pressure since yesterday morning, located on mid chest, sometimes radiated to left back. Patient denies shortness of breath. Patient has mild nausea but no vomiting. Patient denies diaphoresis or palpitation. The chest pressure feeling is intermittent. Patient denies chest pain, heartburn, or acid reflex. When I saw patient in the emergency room, she is symptoms free and feels totally fine. Patient was admitted to rule out ACS. Patient denies history of CAD. She said that she had LHC about 2 years ago, result is negative. Past Med Surg Social Fam HX - Past Medical History Medical history: GI bleed, hypertension, osteoporosis Psychiatric history: no psych history - Past Surgical History Surgical History: hip replacement (Hip fusion at age 21), hysterectomy, other - Social History Smoking Status: Never smoker Smokeless Tobacco Status: No Alcohol use: none Drug use: none - Family History Mother Living Status: Hx Family Cardiac Disorders: Yes (CHF, HTN) Hx Family Respiratory Disorders: No Hx Family Cancer: No Hx Family GI Disorders: No Hx Family Endocrine Disorder: No Hx Family Neuromuscular Disorders: No Hx Family Neurologic Disorders: No Hx Family HEENT Disorders: No Hx Family Autoimmune Disorders: No Internal Medicine - H&P: Meds Amlodipine Besylate 10 mg PO DAILY 06/13/16 [History] Losartan Potassium [Cozaar] 50 mg PO DAILY 06/13/16 [History] Metoprolol [Lopressor] 25 mg PO BID 06/13/16 [History] traZODone [TraZODone] 50 mg PO HS 06/13/16 [History] Docusate Sodium [Dok] 200 mg PO HS 06/12/17 [History] 3 Allergy/AdvReac Type Severity Reaction Status Date / Time No Known Allergies Allergy Verified 06/12/17 18:50 All Systems PM: A 10-system review of systems was performed and is negative for pertinent findings except as documented above in the HPI. - Constitutional Vitals: Temp Pulse Resp BP Pulse Ox 97.8 F 74 18 134/64 96 06/12/17 16:00 06/12/17 19:42 06/12/17 19:42 06/12/17 19:42 06/12/17 19:42 General appearance: Present: A&O X 3, no acute distress, answers questions appropriately - Head Head exam: Present: atraumatic, normocephalic - Eye Eye exam: Present: PERRL, conjuntiva pink, sclera anicteric Pupils: Present: PERRL - Neck Neck exam general surgery: Present: supple, trachea midline. Absent: lymphadenopathy - Respiratory Respiratory exam: Present: CTAB. Absent: accessory muscle use, rales, rhonchi, wheezes - Cardiovascular Cardiovascular exam: Present: RRR, +S1, +S2. Absent: diastolic murmur, gallop, rubs, systolic murmur - GI/Abdominal GI/Abdominal exam: Present: normal bowel sounds, soft, no peritoneal signs. Absent: distended, tenderness - Extremities Exam Extremities exam: Present: warm, radial pulses palpable and symmetrical. Absent : calf tenderness, cyanotic, pedal edema - Neurological Exam Neurological exam: Present: CN II-XII intact, oriented X3, no focal deficits. Absent: pronater drift, facial droop, speech deficit - Skin Skin exam: Present: dry, intact Internal Med - H&P Results - Labs CBC & Chem 7: 06/12/17 16:23 06/12/17 16:21 - EKG Data -: EKG Interpreted by Myself EKG shows normal: sinus rhythm Rate: normal - Assessment and plan (1) Chest pressure Current Visit: Yes Status: Acute Assessment and plan: Patient complaint chest pressure, denies chest pain. EKG and chest x-ray unremarkable. Patient was admitted to rule out ACS. - Continuous cardiac monitoring - Track 3 sets of troponin - Echocardiogram - I have discussed the option of stress test, patient said she does not want to have a stress test at this point. (2) Hypertension Current Visit: Yes Status: Acute Assessment and plan: Continue home medications. Qualifiers: Hypertension type: essential hypertension Qualified Code(s): I10 - Essential (primary) hypertension (3) Hypercalcemia Current Visit: Yes Status: Acute Assessment and plan: Patient was found mild elevated calcium level at 11.1, etiology is undetermined. Patient has history of kidney stone. Review old chart, her calcium level was high on 06/13/16. - Repeat calcium together with albumin level to calculate corrected calcium, check PTHi - Further evaluation/monitoring/follow-up may be done as outpatient. (4) DVT prophylaxis Current Visit: Yes Status: Acute Assessment and plan: Heparin subcutaneously - Time Spent With Patient Total time spent is greater than 50% in coordination of care (as documented) at patient's floor/unit and/or counseling patient: 40 minutes Greater than 35 minutes
[2017-06-12] MEDS: traZODone 50 MG TABLET PO SCH (21:46)
[2017-06-13] MEDS: *HR* Heparin 5,000 UNIT/ML VIAL SQ SCH ×2 (05:31→17:40)
[2017-06-13 05:33] LABS: Basophils % 0.3 %; Eosinophils % 0.7 %; Hematocrit 45.8 % (35.3-44.9); Hemoglobin 14.9 g/dL (11.5-15.4); Immature Granulocytes % 0.2 % (0-4); Lymphocytes # 1.1 K/mcL (0.6-4.6); Lymphocytes % 18.6 %; Mean Corpuscular HGB Conc 32.5 g/dL (31.6-35.5); Mean Corpuscular Hemoglobin 30.7 pg (28.0-33.3); Mean Corpuscular Volume 94.4 fL (83.0-100.0); Mean Platelet Volume 10.1 fL (9.4-12.4); Monocytes # 0.6 K/mcL (0.0-1.3); Monocytes % 9.7 %; Neutrophils # 4.1 K/mcL (1.6-8.9); Platelet Count 180 K/mcL (140-400); Red Blood Count 4.85 M/mcL (3.82-4.97); Red Cell Distribution Width 13.3 % (11.5-14.5); Segmented Neutrophils % 70.5 %
[2017-06-13 05:53] LABS: Troponin I < 0.03 ng/mL (< 0.04)
[2017-06-13 05:55] LABS: Alanine Aminotransferase 11 Units/L (7-52); Albumin 3.7 g/dL (3.5-5.7); Albumin/Globulin Ratio 1.6 (1.1-2.2); Alkaline Phosphatase 126 Units/L (34-104); Aspartate Amino Transferase 15 Units/L (13-39); BUN/Creatinine Ratio 24 (6-26); Bilirubin,Total 0.7 mg/dL (0.3-1.0); Blood Urea Nitrogen 20 mg/dL (8-23); Calcium 10.2 mg/dL (8.6-10.3); Carbon Dioxide 27 mEq/L (23-29); Chloride 107 mEq/L (98-107); Chol/HDL Ratio 3.6 (0-4.9); Cholesterol 153 mg/dL (< 200); Globulin 2.3 g/dL (2.4-3.5); Glucose 94 mg/dL (70-105); HDL Cholesterol 43 mg/dL (40-59); LDL Cholesterol,Calculated 86 mg/dL (0-99); Magnesium 2.2 mg/dL (1.6-2.6); Osmolality,Calculated 292 (280-300); Potassium 3.9 mEq/L (3.5-5.1); Sodium 140 mEq/L (136-145); Triglycerides 121 mg/dL (< 150); eGFR For African Americans > 60 (> 60); eGFR For Non-African Americans > 60 (> 60)
[2017-06-13] MEDS: amLODIPine 5 MG TABLET PO SCH (08:44)
--- NOTE | 2017-06-13 12:01 | Internal Med Progress Note ---
Date of Encounter: 06/13/17 Time of Encounter: 11:59 - Assessment and plan (1) Chest pressure Current Visit: Yes Status: Acute Assessment and plan: Presently patient is chest pain-free EKG and chest x-ray are unremarkable Troponins have been negative 3 Echocardiogram is pending Discussed option of stress test and patient is refusing at this time (2) Hypertension Current Visit: Yes Status: Acute Assessment and plan: Continue home medications. Qualifiers: Hypertension type: essential hypertension Qualified Code(s): I10 - Essential (primary) hypertension (3) Hypercalcemia Current Visit: Yes Status: Acute Assessment and plan: Calcium was 10.2 this a.m.-corrected serum calcium- 10.94 PTH was elevated - she will need follow up as outpatient (4) DVT prophylaxis Current Visit: Yes Status: Acute Assessment and plan: Heparin subcutaneously - Time Spent With Patient Total time spent is greater than 50% in coordination of care (as documented) at patient's floor/unit and/or counseling patient: - Subjective Interval history: Iftikhar patient denies any chest pain or shortness of breath. Family members are at bedside and expressed the patient has been under a lot of stress her is presently in this hospital and is very ill she also has a son who is ill. Patient becomes very teary eyed during conversation concerned about her . She denies any history of CAD she did have a left heart catheter approximate 2 years ago which she states results were negative. She had a stress test several years ago she expresses that she will not undergo another stress test. Awaiting echo results - Constitutional Vitals: Temp Pulse Resp BP Pulse Ox 97.4 F L 62 14 144/74 94 06/13/17 10:50 06/13/17 10:50 06/13/17 10:50 06/13/17 10:50 06/13/17 10:50 General appearance: Present: A&O X 3, no acute distress, answers questions appropriately - Head Head exam: Present: atraumatic, normocephalic - Eye Eye exam: Present: PERRL, conjuntiva pink, sclera anicteric Pupils: Present: PERRL - Neck Neck exam general surgery: Present: supple, trachea midline. Absent: lymphadenopathy - Respiratory Respiratory exam: Present: CTAB. Absent: accessory muscle use, rales, rhonchi, wheezes - Cardiovascular Cardiovascular exam: Present: RRR, +S1, +S2. Absent: diastolic murmur, gallop, rubs, systolic murmur - GI/Abdominal GI/Abdominal exam: Present: normal bowel sounds, soft, no peritoneal signs. Absent: distended, tenderness - Extremities Exam Extremities exam: Present: warm, radial pulses palpable and symmetrical. Absent : calf tenderness, cyanotic, pedal edema - Neurological Exam Neurological exam: Present: CN II-XII intact, oriented X3, no focal deficits. Absent: pronater drift, facial droop, speech deficit - Skin Skin exam: Present: dry, intact Internal Medicine: Result - Labs CBC & Chem 7: 06/13/17 04:04 06/13/17 04:04 Labs: Short CBC 06/13/17 Range/Units 04:04 WBC 5.9 (4.3-11.1) K/mcL Hgb 14.9 (11.5-15.4) g/dL Hct 45.8 H (35.3-44.9) % Plt Count 180 (140-400) K/mcL Neutrophils # 4.1 (1.6-8.9) K/mcL BMP 06/13/17 04:04 Sodium 140 Potassium 3.9 Chloride 107 Carbon Dioxide 27 BUN 20 Creatinine 0.82 Glucose 94 Calcium 10.2 Cardiac Enzymes 06/12/17 06/13/17 Range/Units 21:37 04:04 Troponin I < 0.03 < 0.03 (< 0.04) ng/mL Liver Function 06/13/17 Range/Units 04:04 Total Bilirubin 0.7 (0.3-1.0) mg/dL AST 15 (13-39) Units/L ALT 11 (7-52) Units/L Alkaline Phosphatase 126 H (34-104) Units/L Albumin 3.7 (3.5-5.7) g/dL - ABG Interpretation ABG results: PT/INR, D-dimer PT 12.0 Seconds (9.4-12.1) 06/12/17 16:23 Consult Discharge Plan - Plan Referrals: Thony Perez Jr, MD [Primary Care Provider] -
[2017-06-13] MEDS: traZODone 50 MG TABLET PO SCH (21:53)
[2017-06-14 05:44] LABS: Basophils % 0.3 %; Eosinophils # 0.1 K/mcL (0.0-0.6); Hematocrit 46.8 % (35.3-44.9); Hemoglobin 15.2 g/dL (11.5-15.4); Immature Granulocytes % 0.2 % (0-4); Lymphocytes # 1.1 K/mcL (0.6-4.6); Lymphocytes % 18.2 %; Mean Corpuscular HGB Conc 32.5 g/dL (31.6-35.5); Mean Corpuscular Hemoglobin 31.1 pg (28.0-33.3); Mean Corpuscular Volume 95.7 fL (83.0-100.0); Monocytes # 0.6 K/mcL (0.0-1.3); Monocytes % 10.5 %; Neutrophils # 4.1 K/mcL (1.6-8.9); Platelet Count 176 K/mcL (140-400); Red Blood Count 4.89 M/mcL (3.82-4.97); Red Cell Distribution Width 13.2 % (11.5-14.5); Segmented Neutrophils % 69.8 %
[2017-06-14] MEDS: *HR* Heparin 5,000 UNIT/ML VIAL SQ SCH (05:56)
[2017-06-14 06:07] LABS: BUN/Creatinine Ratio 28 (6-26); Blood Urea Nitrogen 23 mg/dL (8-23); Calcium 10.3 mg/dL (8.6-10.3); Carbon Dioxide 26 mEq/L (23-29); Chloride 108 mEq/L (98-107); Glucose 110 mg/dL (70-105); Osmolality,Calculated 294 (280-300); Potassium 3.7 mEq/L (3.5-5.1); Sodium 140 mEq/L (136-145); eGFR For African Americans > 60 (> 60); eGFR For Non-African Americans > 60 (> 60)
[2017-06-14] MEDS: amLODIPine 5 MG TABLET PO SCH (08:45)
[2017-06-14 10:44] LABS: Thyroid Stimulating Hormone 4.279 mcIU/mL (0.340-5.600)
--- NOTE | 2017-06-14 13:45 | Discharge Summary ---
- NOTES TO OUTPATIENT PROVIDER Notes to Outpatient Provider: Patient had elevated calcium 11.1 on presentation recheck 10.2 with corrected calcium of 10.9 PTH elevated she will need follow up /monitoring Date of Encounter: 06/14/17 Time of Encounter: 13:40 - Discharge Diagnosis (1) Chest pressure Priority: Primary Status: Acute (2) Hypertension Priority: Secondary Status: Chronic Qualifiers: Hypertension type: essential hypertension Qualified Code(s): I10 - Essential (primary) hypertension (3) Hypercalcemia Priority: Secondary Status: Acute Hospital course: Ms. Brown is a 89 year old female past medical history hypertension diverticulitis GI bleed. According to the patient she has been experiencing chest pressure for 2 days with mild nausea describes the pain as intermittent. According to the family and patient she has been under a lot of stress her is very ill is presently in the hospital she is concerned about finances as well as a son that is ill. During assessment she has become teary- eyed at times. Patient said she had a left heart catheter approximately 2 years ago which was negative she also has had a cardiac stress test in the past which was negative. She denies any past history of coronary artery disease. She does have high blood pressure which she states has been controlled however recently she has had episodes when it has been elevated due to the fact she has been under duress. Upon presentation to the ER her blood pressure was elevated with systolic 180s EKG and chest x-ray were unremarkable cardiac troponins were negative 3. Echocardiogram EF 60-65% mild concentric left ventricular hypertrophy normal LV chamber size wall thickness and function mild left ventricular diastolic dysfunction normal right ventricular structure and function no evidence of pulmonary hypertension no significant valvular disease. Her vital signs had been stable no elevation and blood pressure during stay no chest pain voiced. We did discuss possible cardiac stress test however patient did decline. Do not feel the chest pain was cardiac in nature and may be more related to anxiety and stress. Patient was seen by PT OT advised swing bed placement however patient declined. She did agree to home health and social media intern did set up home health services prior to discharge. I advised the patient to follow up with PCP since this provider knows her best and to monitor BP. She is hemodynamcially stable and ready for discharge Discharge discussed with: patient - Time Spent with Patient Total time spent providing and/or coordinating discharge services: - Discharge Medications Home Medications: Amlodipine Besylate 10 mg PO DAILY 06/13/16 [History] Losartan Potassium [Cozaar] 50 mg PO DAILY 06/13/16 [History] Metoprolol [Lopressor] 25 mg PO BID 06/13/16 [History] traZODone [TraZODone] 50 mg PO HS 06/13/16 [History] Docusate Sodium [Dok] 200 mg PO HS 06/12/17 [History] Allergies/Adverse Reactions: 3 Allergy/AdvReac Type Severity Reaction Status Date / Time No Known Allergies Allergy Verified 06/12/17 18:50 Date of admission: 06/12/17 19:51 Primary care physician: Thony Perez Jr, MD Consults: 06/12/17 21:29 Consult to Video Control Engineer [CONS] Routine Reason for SW Consult: Discharge planning 06/14/17 11:50 Consult to Physical Therapy [CONS] Routine Comment: Evaluate, develop and implement POC Reason for Consult: discharge needs Does patient have active BEDREST order?: No Is patient medically & hemodynamically stable?: Yes 06/14/17 11:51 Consult to Occupational Therapy [CONS] Routine Comment: Evaluate, develop and implement POC Reason for Consult: discharge needs Does patient have active BEDREST order?: No Is patient medically & hemodynamically stable?: Yes Discharging clinician: Alicia Arora Anticipated date of discharge: 06/14/17 - Constitutional Vitals: Temp Pulse Resp BP Pulse Ox 97.6 F 58 16 119/68 91 06/14/17 11:28 06/14/17 11:28 06/14/17 11:28 06/14/17 11:28 06/14/17 11:28 General appearance: Present: A&O X 3, no acute distress, answers questions appropriately - Head Head exam: Present: atraumatic, normocephalic - Eye Eye exam: Present: PERRL, conjuntiva pink, sclera anicteric Pupils: Present: PERRL - Neck Neck exam general surgery: Present: supple, trachea midline. Absent: lymphadenopathy - Respiratory Respiratory exam: Present: CTAB. Absent: accessory muscle use, rales, rhonchi, wheezes - Cardiovascular Cardiovascular exam: Present: RRR, +S1, +S2. Absent: diastolic murmur, gallop, rubs, systolic murmur - GI/Abdominal GI/Abdominal exam: Present: normal bowel sounds, soft, no peritoneal signs. Absent: distended, tenderness - Extremities Exam Extremities exam: Present: warm, radial pulses palpable and symmetrical. Absent : calf tenderness, cyanotic, pedal edema - Neurological Exam Neurological exam: Present: CN II-XII intact, oriented X3, no focal deficits. Absent: pronater drift, facial droop, speech deficit - Skin Skin exam: Present: dry, intact - Patient Status Disposition: Home Health Service Condition: Good Functional capacity at discharge: independent ambulation Overall status at discharge: patient is back to baseline - Discharge Instructions Instructions: Chest Pain (DC), Chronic Hypertension (DC) Follow Up With: Thony Perez Jr, MD [Primary Care Provider] - - Diet and Activity Activity: resume usual activities as tolerated Diet: advance to your usual diet
[2017-06-14 14:32] VITALS: BP 131/80
--- NOTE | 2017-06-14 16:29 | Physician Discharge Referral ---
Home Health/Hosp Referral Info Transfer to: Home Health Attending Provider: Ulysses Vargas Provider in Charge Post Discharge: PCP - Diagnosis (1) Chest pressure Priority: Primary Status: Acute (2) Hypertension Priority: Secondary Status: Chronic (3) Hypercalcemia Priority: Primary Status: Acute - Respiratory Orders Smoking Cessation: Smoking cessation has been advised. For more information, call the [place] Tobacco Quit Line at 7-885-WRNN-NOW. - Diet/Nutrition Diet/Nutrition Orders: No Added Salt (VERONICA) - Activity Activity Orders: Walker - Services Needed Following services are medically necessary services: Nursing, Home Health Aide, Physical Therapy, Occupational Therapy - Transfer Medications Home Medications: Amlodipine Besylate 10 mg PO DAILY 06/13/16 [History] Losartan Potassium [Cozaar] 50 mg PO DAILY 06/13/16 [History] Metoprolol [Lopressor] 25 mg PO BID 06/13/16 [History] traZODone [TraZODone] 50 mg PO HS 06/13/16 [History] Docusate Sodium [Dok] 200 mg PO HS 06/12/17 [History] Allergies/Adverse Reactions: 3 Allergy/AdvReac Type Severity Reaction Status Date / Time No Known Allergies Allergy Verified 06/12/17 18:50 Certification: Further, I certify that my clinical findings support that this patient is homebound (i.e. absences from home require considerable and taxing effort and are for medical reasons or moravian services or infrequently or short duration when for other reasons) because: Homebound Reason: Patient requires assistance of a person or device to safely leave home Attestation: My signature below is to certify that this patient is under my care and that I, or nurse practitioner, or a physician's chemist assistant working with me, has a face-to -face encounter with this patient.
--- NOTE | 2017-06-15 18:26 | Electrocardiograph Report ---
[address] [address] Test Date: 2017-06-12 Pat Name: Kindra Brown Department: 102 Room: 3B43 Gender: F Volunteer Specialist: Sweetie : [id number] Requested By: Cl Flores Order Number: [id number] Reading MD: Sugey Alvarado Measurements Intervals [place] Rate: 72 P: 63 GA: 187 QRS: 29 QRSD: 89 T: 37 QT: 349 QTc: 374 Interpretive Statements SINUS RHYTHM Electronically Signed On 06-15-2017 18:25:15 EDT by Sugey Alvarado
== END 2017-06-14 17:44 | disposition home health service (06) ==
LOC: EMEROO 15:59 → 3BNU 15:59
PROVIDERS: ADMIT Internal Medicine; ATTEND Pediatrics

== ENCOUNTER 2017-08-16 07:35 | Observation (INO) ==
[2017-08-16] MEDS ORDERED: *HR* Metoprolol 5 MG/5 ML VIAL IVP ONE (07:52)
--- NOTE | 2017-08-16 07:52 | Emergency Department Note ---
Disposition Clinical Impression: Atrial fibrillation with RVR Afib Qualifiers: Atrial fibrillation type: unspecified Qualified Code(s): I48.91 - Unspecified atrial fibrillation Congestive heart failure (CHF) Qualifiers: Heart failure type: unspecified Heart failure chronicity: unspecified Qualified Code(s): I50.9 - Heart failure, unspecified Disposition: Admitted As Inpatient Condition: Fair Time of Disposition: 09:46 General Adult HPI - General Chief complaint: ED Shortness of Breath/Dyspnea Stated complaint: MAG Time Seen by Provider: 08/16/17 07:41 Source: EMS Mode of arrival: EMS Limitations: no limitations Nursing Notes Reviewed: Yes Vital Signs Reviewed: Yes - History of Present Illness HPI Narrative: 89-year-old female with history of hypertension persists for evaluation of dyspnea. Patient presents via EMS. EMS reports that the patient was 90% on room air. Patient was given a couple liters nasal cannula and improved. Patient states that she has been feeling short of breath for approximately one week. Patient denies any fevers has had mucousy drainage but no productive cough. Patient denies any chest pain. Patient does note periods of nausea but no vomiting. Patient denies any abdominal pain. Patient denies any heart disease or heart attacks. Patient denies any COPD or smoking history. 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 Patient denies any active cancers any recent long travel. Patient does note lower extremity edema. Patient denies history of arrhythmias. Patient states that she has been under increasing stress with her and health issues. Pain Scale: 0 - Related Data Home Medications Medication Instructions Recorded Confirmed Amlodipine Besylate 10 mg PO DAILY 06/13/16 08/16/17 Losartan Potassium [Cozaar] 50 mg PO DAILY 06/13/16 08/16/17 Metoprolol [Lopressor] 25 mg PO BID 06/13/16 08/16/17 traZODone [TraZODone] 50 mg PO HS 06/13/16 08/16/17 Docusate Sodium [Dok] 200 mg PO HS 06/12/17 08/16/17 Furosemide [Lasix] 20 mg PO DAILY PRN 08/16/17 08/16/17 Meclizine HCl [Verticalm] 25 mg PO TID PRN 08/16/17 08/16/17 Allergies Allergy/AdvReac Type Severity Reaction Status Date / Time No Known Allergies Allergy Verified 06/12/17 18:50 All systems ED: reviewed and negative except as stated. Constitutional: Denies: fever Cardiovascular: Denies: chest pain Respiratory: Reports: dyspnea. Denies: cough Gastrointestinal: Reports: nausea. Denies: abdominal pain, vomiting Past Medical History - Past Medical History Source: patient Medical history: Reports: GI bleed, hypertension, osteoporosis Surgical history: Reports: hip replacement (Hip fusion at age 21), hysterectomy , other Psychiatric history: Reports: no psych history PUBLIC RELATIONS ACCOUNT SUPERVISOR history: Reports: no PUBLIC RELATIONS ACCOUNT SUPERVISOR history - Social History Smoking Status: Never smoker Smokeless Tobacco Status: No Alcohol use: Reports: none Drug use: Reports: none Physical Exam - General Limitations: no limitations General appearance: alert, in no apparent distress - Head Head exam: atraumatic, normocephalic, normal inspection - Eye Eye exam: Present: normal appearance, PERRL, EOMI - ENT ENT exam: normal exam, mucous membranes moist - Neck Neck exam: Present: normal inspection - Chest Chest inspection: Present: normal inspection, symmetric chest wall rise - Respiratory Respiratory exam: Present: normal lung sounds bilaterally. Absent: prolonged expiratory phase - Cardiovascular Cardiovascular exam: Present: tachycardia, irregular rhythm. Absent: systolic murmur - Abdominal Exam Abdominal exam: Present: soft, Non-Tender - Extremities Exam Extremities exam: Present: normal inspection, pedal edema (trace) - Expanded Lower Extremity Exam Neurovascular/Tendon exam: Present: normal capillary refill. Absent: pulse deficit, motor deficit, sensory deficit - Back Exam Back exam: Present: normal inspection - Neurological Exam Neurological exam: Present: alert, oriented X3 - Skin Skin exam: Present: warm, dry, intact, normal color Course Course Narrative: Patient seen and examined. Patient's resting comfortably. Patient's echo finding of chest pain. Patient's rhythm appears to be irregular regular. Patient will get screening card a pulmonary evaluation with EKG, chest x-ray troponin. Patient will also get a d-dimer as the patient's low risk [place] given her periods of immobility patient does have risk factors for pulmonary embolism. Patient had an echo obtained back in May which showed an EF of 60- 65% with mild left ventricular hypertrophy - Reevaluation(s) Reevaluation #1: Patient seen and examined. Patient plan of care discussed at bedside. Patient has an elevated d-dimer appears mildly elevated from age-adjusted will obtain a CT scan with contrast for pulmonary embolism. Patient also has elevated BNP with likely new onset heart failure in the setting of A. fib RVR. Patient will be given a single dose sublingual nitroglycerin to see a female improve her symptoms. Time: 08:49 Reevaluation #2: Patient's resting comfortably. Plan of care discussed. At this point the patient does not require noninvasive positive pressure ventilation. Patient was treated with nitroglycerin as well as Lasix. Patient will be admitted the hospital service for further evaluation monitoring. Time: 10:12 Vital Signs Temperature 97.5 F L 08/16/17 07:37 Pulse Rate 121 08/16/17 07:37 Respiratory Rate 26 08/16/17 07:37 Blood Pressure 153/97 08/16/17 07:37 O2 Sat by Pulse Oximetry 94 08/16/17 07:37 Temperature 97.5 F L 08/16/17 07:37 Pulse Rate 91 08/16/17 09:38 Respiratory Rate 17 08/16/17 09:38 Blood Pressure 164/111 08/16/17 09:38 O2 Sat by Pulse Oximetry 94 08/16/17 09:38 Oxygen Delivery Oxygen Delivery Nasal Cannula Medical Decision Making - MDM Narrative Medical decision making narrative: 89-year-old female percent for evaluation of dyspnea. During the course of the patient's ED evaluation the patient was requiring some oxygen supplementation which is not have available at home. Patient was deemed low risk but had a mildly elevated d-dimer that is age-adjusted. Patient did get a CT scan of the chest and was negative for pulmonary embolism. Patient did have mild elevation in BNP as well as imaging findings concerning for congestive heart failure. Patient was given subungual nitroglycerin as well as Lasix to help with her symptoms. Patient does not have a history of A. fib based on prior EKGs. Patient also does not have to have a history of heart failure based on echo was obtained earlier this year. Patient be admitted to hospital service for further evaluation and monitoring of the etiology the patient's heart failure. Family at bedside as well as patient agree with and of care. - Lab Data Lab results reviewed: Yes I reviewed the patient's lab results. Result diagrams: 08/16/17 07:49 08/16/17 07:49 Lab Results 08/16/17 08/16/1708/16/18 Range/Units 07:49 07:49 07:49 WBC 7.0 (4.3-11.1) K/mcL RBC 4.43 (3.82-4.97) M/mcL Hgb 13.8 (11.5-15.4) g/dL Hct 42.8 (35.3-44.9) % MCV 96.6 (83.0-100.0) fL MCH 31.2 (28.0-33.3) pg MCHC 32.2 (31.6-35.5) g/dL RDW 13.6 (11.5-14.5) % Plt Count 171 (140-400) K/mcL MPV 10.3 (9.4-12.4) fL Immature Gran % 0.3 (0-4) % Seg Neutrophils % 78.3 % Lymphocytes % 11.2 % Monocytes % 8.9 % Eosinophils % 1.0 % Basophils % 0.3 % Neutrophils # 5.5 (1.6-8.9) K/mcL Lymphocytes # 0.8 (0.6-4.6) K/mcL Monocytes # 0.6 (0.0-1.3) K/mcL Eosinophils # 0.1 (0.0-0.6) K/mcL Basophils # 0.0 (0.0-0.2) K/mcL D-Dimer (0-500) ng/mLFEU Sodium 142 (136-145) mEq/L Potassium 3.9 (3.5-5.1) mEq/L Chloride 108 H (98-107) mEq/L Carbon Dioxide 26 (23-29) mEq/L BUN 16 (8-23) mg/dL Creatinine 0.73 (0.60-1.20) mg/dL Est GFR ( Amer) > 60 (> 60) Est GFR (Non-Af Amer) > 60 (> 60) BUN/Creatinine Ratio 22 (6-26) Glucose 119 H (70-105) mg/dL Calculated Osmolality 296 (280-300) Lactic Acid 1.1 (0.5-2.2) mmol/L Calcium 10.2 (8.6-10.3) mg/dL Troponin I < 0.03 (< 0.04) ng/mL B-Natriuretic Peptide (Less than 100) pg/mL 08/16/17 08/16/17 Range/Units 07:49 07:49 WBC (4.3-11.1) K/mcL RBC (3.82-4.97) M/mcL Hgb (11.5-15.4) g/dL Hct (35.3-44.9) % MCV (83.0-100.0) fL MCH (28.0-33.3) pg MCHC (31.6-35.5) g/dL RDW (11.5-14.5) % Plt Count (140-400) K/mcL MPV (9.4-12.4) fL Immature Gran % (0-4) % Seg Neutrophils % % Lymphocytes % % Monocytes % % Eosinophils % % Basophils % % Neutrophils # (1.6-8.9) K/mcL Lymphocytes # (0.6-4.6) K/mcL Monocytes # (0.0-1.3) K/mcL Eosinophils # (0.0-0.6) K/mcL Basophils # (0.0-0.2) K/mcL D-Dimer 906 H (0-500) ng/mLFEU Sodium (136-145) mEq/L Potassium (3.5-5.1) mEq/L Chloride (98-107) mEq/L Carbon Dioxide (23-29) mEq/L BUN (8-23) mg/dL Creatinine (0.60-1.20) mg/dL Est GFR ( Amer) (> 60) Est GFR (Non-Af Amer) (> 60) BUN/Creatinine Ratio (6-26) Glucose (70-105) mg/dL Calculated Osmolality (280-300) Lactic Acid (0.5-2.2) mmol/L Calcium (8.6-10.3) mg/dL Troponin I (< 0.04) ng/mL B-Natriuretic Peptide 670 H (Less than 100) pg/mL - Radiology Data Radiology results reviewed: Yes I reviewed the patient's radiology results. Chest X-Ray 08/16/17 07:41 IMPRESSION: Developing pulmonary edema Trace bilateral pleural effusions D/ / Yaw Gu MD / Yaw Gu MD Interpreting Provider: Yaw Gu MD Chest CTA 08/16/17 08:44 IMPRESSION: No evidence for pulmonary embolism. Moderate bilateral pleural effusions. Mild interlobular septal thickening and subtle bibasilar airspace disease. Findings suggest pulmonary vascular congestion. D/ / Maikel Perrin MD / Maikel Perrin MD Interpreting Provider: Maikel Perrin MD - EKG Data EKG #1 EKG attestation: Yes I reviewed and interpreted this EKG. Rate: tachycardia Rhythm: A.Fib [place]/QRS: normal When compared to previous EKG there are: changes noted Interpretation: nonspecific ST-T wave changes S.B.A.RNael - S.B.AAlda Situation: Demographics Background: Presenting Complaint Assessment: Vital Signs, Course and respsone to treatment, Patient/Family Expectation Recommendation: Barrier(s) to disposition, Recommendation based on pending studies, treatments, or consults S.B.A.RNael Report Given to: Dr. Jenn Mora Repor Time: 09:52
[2017-08-16 08:09] LABS: Basophils % 0.3 %; Eosinophils # 0.1 K/mcL (0.0-0.6); Hematocrit 42.8 % (35.3-44.9); Hemoglobin 13.8 g/dL (11.5-15.4); Immature Granulocytes % 0.3 % (0-4); Lymphocytes # 0.8 K/mcL (0.6-4.6); Lymphocytes % 11.2 %; Mean Corpuscular HGB Conc 32.2 g/dL (31.6-35.5); Mean Corpuscular Hemoglobin 31.2 pg (28.0-33.3); Mean Corpuscular Volume 96.6 fL (83.0-100.0); Mean Platelet Volume 10.3 fL (9.4-12.4); Monocytes # 0.6 K/mcL (0.0-1.3); Monocytes % 8.9 %; Neutrophils # 5.5 K/mcL (1.6-8.9); Platelet Count 171 K/mcL (140-400); Red Blood Count 4.43 M/mcL (3.82-4.97); Red Cell Distribution Width 13.6 % (11.5-14.5); Segmented Neutrophils % 78.3 %
[2017-08-16 08:21] LABS: BUN/Creatinine Ratio 22 (6-26); Blood Urea Nitrogen 16 mg/dL (8-23); Calcium 10.2 mg/dL (8.6-10.3); Carbon Dioxide 26 mEq/L (23-29); Chloride 108 mEq/L (98-107); Glucose 119 mg/dL (70-105); Osmolality,Calculated 296 (280-300); Potassium 3.9 mEq/L (3.5-5.1); Sodium 142 mEq/L (136-145); eGFR For African Americans > 60 (> 60); eGFR For Non-African Americans > 60 (> 60)
[2017-08-16 08:22] LABS: Troponin I < 0.03 ng/mL (< 0.04)
--- NOTE | 2017-08-16 08:30 | Emergency Department Note ---
Disposition Clinical Impression: Congestive heart failure (CHF) Afib Qualifiers: Atrial fibrillation type: unspecified Qualified Code(s): I48.91 - Unspecified atrial fibrillation Disposition: Admitted As Inpatient Condition: Fair Referrals: Thony Perez Jr, MD [Primary Care Provider] - Forms: ED Satisfaction Letter General Adult HPI - General Chief complaint: ED Shortness of Breath/Dyspnea Stated complaint: MAG Time Seen by Provider: 08/16/17 07:41 Source: EMS Mode of arrival: EMS Limitations: no limitations - History of Present Illness Pain Scale: 0 - Related Data Home Medications Medication Instructions Recorded Confirmed Amlodipine Besylate 10 mg PO DAILY 06/13/16 08/16/17 Losartan Potassium [Cozaar] 50 mg PO DAILY 06/13/16 08/16/17 Metoprolol [Lopressor] 25 mg PO BID 06/13/16 08/16/17 traZODone [TraZODone] 50 mg PO HS 06/13/16 08/16/17 Docusate Sodium [Dok] 200 mg PO HS 06/12/17 08/16/17 Furosemide [Lasix] 20 mg PO DAILY PRN 08/16/17 08/16/17 Meclizine HCl [Verticalm] 25 mg PO TID PRN 08/16/17 08/16/17 Allergies Allergy/AdvReac Type Severity Reaction Status Date / Time No Known Allergies Allergy Verified 06/12/17 18:50 Constitutional: Denies: fever Cardiovascular: Denies: chest pain Respiratory: Reports: dyspnea. Denies: cough Gastrointestinal: Reports: nausea. 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 - Social History Smoking Status: Never smoker Smokeless Tobacco Status: No Alcohol use: Reports: none Drug use: Reports: none Physical Exam - General Limitations: no limitations General appearance: alert, in no apparent distress Course Vital Signs Temperature 97.5 F L 08/16/17 07:37 Pulse Rate 121 08/16/17 07:37 Respiratory Rate 26 08/16/17 07:37 Blood Pressure 153/97 08/16/17 07:37 O2 Sat by Pulse Oximetry 94 08/16/17 07:37 Temperature 97.5 F L 08/16/17 07:37 Pulse Rate 91 08/16/17 09:38 Respiratory Rate 17 08/16/17 09:38 Blood Pressure 164/111 08/16/17 09:38 O2 Sat by Pulse Oximetry 94 08/16/17 09:38 Oxygen Delivery Oxygen Delivery Nasal Cannula Medical Decision Making - Lab Data Result diagrams: 08/16/17 07:49 08/16/17 07:49 Lab Results 08/16/17 08/16/17 08/16/17 Range/Units 07:49 07:49 07:49 WBC 7.0 (4.3-11.1) K/mcL RBC 4.43 (3.82-4.97) M/mcL Hgb 13.8 (11.5-15.4) g/dL Hct 42.8 (35.3-44.9) % MCV 96.6 (83.0-100.0) fL MCH 31.2 (28.0-33.3) pg MCHC 32.2 (31.6-35.5) g/dL RDW 13.6 (11.5-14.5) % Plt Count 171 (140-400) K/mcL MPV 10.3 (9.4-12.4) fL Immature Gran % 0.3 (0-4) % Seg Neutrophils % 78.3 % Lymphocytes % 11.2 % Monocytes % 8.9 % Eosinophils % 1.0 % Basophils % 0.3 % Neutrophils # 5.5 (1.6-8.9) K/mcL Lymphocytes # 0.8 (0.6-4.6) K/mcL Monocytes # 0.6 (0.0-1.3) K/mcL Eosinophils # 0.1 (0.0-0.6) K/mcL Basophils # 0.0 (0.0-0.2) K/mcL D-Dimer (0-500) ng/mLFEU Sodium 142 (136-145) mEq/L Potassium 3.9 (3.5-5.1) mEq/L Chloride 108 H (98-107) mEq/L Carbon Dioxide 26 (23-29) mEq/L BUN 16 (8-23) mg/dL Creatinine 0.73 (0.60-1.20) mg/dL Est GFR ( Amer) > 60 (> 60) Est GFR (Non-Af Amer) > 60 (> 60) BUN/Creatinine Ratio 22 (6-26) Glucose 119 H (70-105) mg/dL Calculated Osmolality 296 (280-300) Lactic Acid 1.1 (0.5-2.2) mmol/L Calcium 10.2 (8.6-10.3) mg/dL Troponin I < 0.03 (< 0.04) ng/mL B-Natriuretic Peptide (Less than 100) pg/mL 08/16/17 08/16/17 Range/Units 07:49 07:49 WBC (4.3-11.1) K/mcL RBC (3.82-4.97) M/mcL Hgb (11.5-15.4) g/dL Hct (35.3-44.9) % MCV (83.0-100.0) fL MCH (28.0-33.3) pg MCHC (31.6-35.5) g/dL RDW (11.5-14.5) % Plt Count (140-400) K/mcL MPV (9.4-12.4) fL Immature Gran % (0-4) % Seg Neutrophils % % Lymphocytes % % Monocytes % % Eosinophils % % Basophils % % Neutrophils # (1.6-8.9) K/mcL Lymphocytes # (0.6-4.6) K/mcL Monocytes # (0.0-1.3) K/mcL Eosinophils # (0.0-0.6) K/mcL Basophils # (0.0-0.2) K/mcL D-Dimer 906 H (0-500) ng/mLFEU Sodium (136-145) mEq/L Potassium (3.5-5.1) mEq/L Chloride (98-107) mEq/L Carbon Dioxide (23-29) mEq/L BUN (8-23) mg/dL Creatinine (0.60-1.20) mg/dL Est GFR ( Amer) (> 60) Est GFR (Non-Af Amer) (> 60) BUN/Creatinine Ratio (6-26) Glucose (70-105) mg/dL Calculated Osmolality (280-300) Lactic Acid (0.5-2.2) mmol/L Calcium (8.6-10.3) mg/dL Troponin I (< 0.04) ng/mL B-Natriuretic Peptide 670 H (Less than 100) pg/mL Critical Care Time Critical Care Time: Yes Total Critical Care Time: 30 Attestation: Patient did present with new-onset atrial fibrillation with rapid ventricular response and the patient does have acute congestive heart failure. Received IV medication for the atrial fibrillation as well as sublingual nitroglycerin and IV Lasix for congestive heart failure and the patient will be admitted to the hospital. 30 minutes of critical care time spent with this patient. [id number] Attestation Statement - Attestation Attestation: I examined this patient and my medical decision-making was reviewed with the POST ACUTE CARE NURSE/PA/Advanced Practice Nurse/Resident Physician. I agree with the documented findings, disposition and treatment plan as described except to the extent set forth below. I did see the patient spoke with an examine her. Mild lower extremity peripheral edema which is bilateral symmetric. Said she had some lower extremity swelling 2 days ago. She does not have fever. No orthopnea. His shortness of breath began gradually 1 week ago and is constant. Does not normally use oxygen at home and she was 90% on room air. Evaluation pending. I did review the EKG which does show atrial fibrillation with rapid ventricular response without ischemic changes [id number]
[2017-08-16] MEDS ORDERED: Isovue-370 500 ML INFUS..BTL IV ONE (08:44)
[2017-08-16] MEDS ORDERED: Nitroglycerin 0.4 MG TAB.SUBL SL ONE (08:48)
[2017-08-16] MEDS ORDERED: Furosemide 40 MG/4 ML VIAL IVP ONE (09:45)
--- NOTE | 2017-08-16 10:29 | Internal Med History&Physical ---
Date of Encounter: 08/16/17 Time of Encounter: 11:20 Internal Medicine - H&P: HPI Chief complaint: Shortness of breath Admitted From: Emergency Dept Plans for Post Hospital Care: Home History of present illness: Ms. Brown is a 89 year old female patient with a history of hypertension, prior GI bleed presented to the ER with complaints of shortness of breath. Her symptoms have been going on for 1 week. She is also been having a fluttery feeling in her chest for the past 2 weeks. She denies any chest pain. Her shortness of breath was present all the time but it has since improved since she came to the ER. She did receive Lasix in the ER. She does not have any prior history of cardiac disease. Denies any fevers or chills. Does have nausea. No diarrhea or constipation. No dizziness or lightheadedness. No focal weakness or numbness. She also has had pedal edema in her lower extremities. She did take Lasix one time in the past couple of weeks. She she reports that she has diverticulosis and has had large amount of lower GI bleed intermittently in the past from it. Last episode was greater than one year back. Past Med Surg Social Fam HX - Past Medical History Attestation: Yes The following information was validated with the patient. Source: old records reviewed Medical history: GI bleed, hypertension, osteoporosis Additional medical history: diverticulosis Psychiatric history: no psych history - Past Surgical History Surgical History: hip replacement (Hip fusion at age 21), hysterectomy, other Additional surgical history: fused Left hip, fract. femur, broken bone in back - Social History Smoking Status: Never smoker Smokeless Tobacco Status: No Alcohol use: none Drug use: none - Family History Mother Living Status: Hx Family Cardiac Disorders: Yes (CHF, HTN) Hx Family Respiratory Disorders: No Hx Family Cancer: No Hx Family GI Disorders: No Hx Family Endocrine Disorder: No Hx Family Neuromuscular Disorders: No Hx Family Neurologic Disorders: No Hx Family HEENT Disorders: No Hx Family Autoimmune Disorders: No Internal Medicine - H&P: Meds Amlodipine Besylate 10 mg PO DAILY 06/13/16 [History] Losartan Potassium [Cozaar] 50 mg PO DAILY 06/13/16 [History] Metoprolol [Lopressor] 25 mg PO BID 06/13/16 [History] traZODone [TraZODone] 50 mg PO HS 06/13/16 [History] Docusate Sodium [Dok] 200 mg PO HS 06/12/17 [History] Furosemide [Lasix] 20 mg PO DAILY PRN 08/16/17 [History] Meclizine HCl [Verticalm] 25 mg PO TID PRN 08/16/17 [History] 3 Allergy/AdvReac Type Severity Reaction Status Date / Time No Known Allergies Allergy Verified 06/12/17 18:50 All Systems PM: A 10-system review of systems was performed and is negative for pertinent findings except as documented above in the HPI. - Constitutional Constitutional: no chills, no fever(s), no night sweats - EENT Eyes: no change in vision, no discharge, no pain, no photophobia Ears: no ear discharge, no ear pain, no tinnitus Nose, mouth and throat: no dysphagia, no nasal discharge, no neck pain, no sore throat - Cardiovascular Cardiovascular ROS IM: dyspnea, dyspnea on exertion, edema, orthopnea, palpitations, no chest pain, no diaphoresis, no lightheadedness, no syncope - Respiratory Respiratory: no cough, no dyspnea, no wheezing, no excessive phlegm production - Gastrointestinal Gastrointestinal: no abdominal pain, no diarrhea, no hematemesis, no hematochezia, no melena, no nausea, no vomiting - Genitourinary Genitourinary: no change in urinary stream, no dysuria, no flank pain, no hematuria - Musculoskeletal Musculoskeletal ROS IM: no numbness, no tingling - Integumentary Integumentary IM: no rash, no unusual bruising - Neurological Neurological ROS: no confusion, no convulsions, no focal weakness, no numbness, no tingling, no tremor(s) - Hematologic/Lymphatic Hematologic/Lymphatic: no easy bruising - Constitutional Vitals: Temp Pulse Resp BP Pulse Ox 97.5 F L 91 17 164/111 94 08/16/17 07:37 08/16/17 09:38 08/16/17 09:38 08/16/17 09:38 08/16/17 09:38 General appearance: Present: cooperative, A&O X 3, pleasant, answers questions appropriately - Neck Neck exam general surgery: Present: supple, trachea midline. Absent: lymphadenopathy - Respiratory Respiratory exam: Present: CTAB. Absent: accessory muscle use, rales, rhonchi, wheezes - Cardiovascular Cardiovascular exam: Present: irregular rhythm, +S1, +S2. Absent: diastolic murmur, gallop, rubs, systolic murmur - GI/Abdominal GI/Abdominal exam: Present: normal bowel sounds, soft, no peritoneal signs. Absent: distended, tenderness - Extremities Exam Extremities exam: Present: pedal edema (Trace bilateral), warm, radial pulses palpable and symmetrical. Absent: calf tenderness, cyanotic - Neurological Exam Neurological exam: Present: CN II-XII intact, oriented X3, no focal deficits. Absent: facial droop, speech deficit - Skin Skin exam: Present: dry, intact Internal Med - H&P Results - Labs CBC & Chem 7: 08/16/17 07:49 08/16/17 07:49 - Impressions Impressions Chest X-Ray 08/16/17 07:41 IMPRESSION: Developing pulmonary edema Trace bilateral pleural effusions D/ / Yaw Gu MD / Yaw Gu MD Interpreting Provider: Yaw Gu MD Chest CTA 08/16/17 08:44 IMPRESSION: No evidence for pulmonary embolism. Moderate bilateral pleural effusions. Mild interlobular septal thickening and subtle bibasilar airspace disease. Findings suggest pulmonary vascular congestion. D/ / Maikel Perrin MD / Maikel Perrin MD Interpreting Provider: Maikel Perrin MD Echo 06/06 LVEF 60-65%. Mild concentric left ventricular hypertrophy. Normal LV chamber size, wall thickness and function. Mild left ventricular diastolic dysfunction. - Assessment and plan (1) Congestive heart failure (CHF) Current Visit: Yes Status: Acute Assessment and plan: Patient presenting with signs and symptoms of acute congestive heart failure. Mostly diastolic congestive heart failure based on recent echocardiogram findings. This probably has been exacerbated due to new onset atrial fibrillation. Will trend troponins. Monitor with telemetry. Fluid restriction. Input and output monitoring. Lasix intravenously. Daily weights. High risk for complications. Qualifiers: Heart failure type: diastolic Heart failure chronicity: acute Qualified Code(s): I50.31 - Acute diastolic (congestive) heart failure (2) Hypertension Current Visit: Yes Status: Chronic Assessment and plan: Uncontrolled. Will resume home medications. Qualifiers: Hypertension type: essential hypertension Qualified Code(s): I10 - Essential (primary) hypertension (3) Atrial fibrillation with RVR Current Visit: Yes Status: Acute Assessment and plan: New onset. No prior history. Will check thyroid profile. 2-D echocardiogram done in May of this year. Trend troponins. Discussed anticoagulation. Given her prior history of GI bleed and advanced age, patient is not an appropriate candidate for medical anticoagulation. Patient and family understand the risks involved. Agree to take baby aspirin. Will place her on aspirin 81 mg. (4) DVT prophylaxis Current Visit: Yes Status: Acute Assessment and plan: With subcutaneous heparin - Time Spent With Patient Total time spent is greater than 50% in coordination of care (as documented) at patient's floor/unit and/or counseling patient:
[2017-08-16] MEDS ORDERED: Naloxone 0.4 MG/ML INJ IVP PRN (10:30)
[2017-08-16 11:28] LABS: Thyroid Stimulating Hormone 5.729 mcIU/mL (0.340-5.600)
[2017-08-16] MEDS: amLODIPine 5 MG TABLET PO SCH (12:59)
[2017-08-16] MEDS: *HR* Heparin 5,000 UNIT/ML VIAL SQ SCH (17:51)
[2017-08-16] MEDS ORDERED: Furosemide 40 MG/4 ML VIAL IVP SCH (21:00)
[2017-08-16] MEDS: traZODone 50 MG TABLET PO SCH (21:31)
[2017-08-17 05:07] LABS: Basophils % 0.3 %; Eosinophils # 0.1 K/mcL (0.0-0.6); Eosinophils % 1.2 %; Hematocrit 40.5 % (35.3-44.9); Hemoglobin 13.2 g/dL (11.5-15.4); Immature Granulocytes % 0.3 % (0-4); Lymphocytes # 0.7 K/mcL (0.6-4.6); Lymphocytes % 8.8 %; Mean Corpuscular HGB Conc 32.6 g/dL (31.6-35.5); Mean Corpuscular Hemoglobin 31.3 pg (28.0-33.3); Mean Platelet Volume 10.4 fL (9.4-12.4); Monocytes # 0.7 K/mcL (0.0-1.3); Monocytes % 8.8 %; Neutrophils # 6.2 K/mcL (1.6-8.9); Platelet Count 172 K/mcL (140-400); Red Blood Count 4.22 M/mcL (3.82-4.97); Red Cell Distribution Width 13.7 % (11.5-14.5); Segmented Neutrophils % 80.6 %
[2017-08-17 05:25] LABS: BUN/Creatinine Ratio 25 (6-26); Blood Urea Nitrogen 17 mg/dL (8-23); Calcium 9.9 mg/dL (8.6-10.3); Carbon Dioxide 28 mEq/L (23-29); Chloride 108 mEq/L (98-107); Glucose 116 mg/dL (70-105); Osmolality,Calculated 295 (280-300); Potassium 3.8 mEq/L (3.5-5.1); Sodium 141 mEq/L (136-145); eGFR For African Americans > 60 (> 60); eGFR For Non-African Americans > 60 (> 60)
[2017-08-17] MEDS: *HR* Heparin 5,000 UNIT/ML VIAL SQ SCH ×2 (06:01→16:38)
[2017-08-17] MEDS: Furosemide 40 MG/4 ML VIAL IVP SCH ×2 (08:40→16:38)
[2017-08-17] MEDS: Aspirin Enteric Coated 81 MG Tablet PO SCH (08:41)
[2017-08-17] MEDS: amLODIPine 5 MG TABLET PO SCH (08:41)
[2017-08-17] MEDS ORDERED: amLODIPine 5 MG TABLET PO SCH (09:00)
--- NOTE | 2017-08-17 10:50 | Internal Med Progress Note ---
Date of Encounter: 08/17/17 Time of Encounter: 10:15 - Assessment and plan (1) Congestive heart failure (CHF) Current Visit: Yes Status: Acute Assessment and plan: Patient presenting with signs and symptoms of acute congestive heart failure. Mostly diastolic congestive heart failure based on recent echocardiogram findings. Presented with new onset Afib Last ECHO 05/2017 with preserved EF, Mild LVDD, no valvular abnormalities Continue lasix IV BID Fluid restriction diet daily weights Strict I/Os No indication to repeat ECHO at this time Qualifiers: Heart failure type: diastolic Heart failure chronicity: acute Qualified Code(s): I50.31 - Acute diastolic (congestive) heart failure (2) Hypertension Current Visit: Yes Status: Chronic Assessment and plan: continue home meds Qualifiers: Hypertension type: essential hypertension Qualified Code(s): I10 - Essential (primary) hypertension (3) DVT prophylaxis Current Visit: Yes Status: Acute Assessment and plan: With subcutaneous heparin (4) Atrial fibrillation with RVR Current Visit: Yes Status: Acute Assessment and plan: New onset. No prior history. TSH upper limit of normal Troponin negative X one set Patient has no chest pain HR now controlled, continue metoprolol Continue ASA Hx of diverticular GIB in the past - Time Spent With Patient Total time spent is greater than 50% in coordination of care (as documented) at patient's floor/unit and/or counseling patient: - Subjective Interval history: Seen and examined at bedside 89 F admitted and being managed for acute on chronic CHFpEF She reports minimal improvement But still cathes her breath with normal conversation She also still has O2 requirement I/O + - Constitutional Vitals: Temp Pulse Resp BP Pulse Ox 98 F 85 18 134/81 93 08/17/17 06:35 08/17/17 06:35 08/17/17 06:35 08/17/17 06:35 08/17/17 06:35 General appearance: Present: cooperative, mild distress, A&O X 3, pleasant, answers questions appropriately - Head Head exam: Present: atraumatic, normocephalic - Eye Eye exam: Present: PERRL, conjuntiva pink, sclera anicteric Pupils: Present: PERRL - Neck Neck exam general surgery: Present: supple, trachea midline. Absent: lymphadenopathy - Respiratory Additional comments: bilateral coarse crackles up to mid-lung - Cardiovascular Cardiovascular exam: Present: RRR, +S1, +S2. Absent: diastolic murmur, gallop, rubs, systolic murmur - GI/Abdominal GI/Abdominal exam: Present: normal bowel sounds, soft, no peritoneal signs. Absent: distended, tenderness - Extremities Exam Extremities exam: Present: warm, radial pulses palpable and symmetrical. Absent : calf tenderness, cyanotic, pedal edema Additional comments: varicose veins ++ - Neurological Exam Neurological exam: Present: alert, CN II-XII intact, oriented X3, no focal deficits. Absent: pronater drift, facial droop, speech deficit - Skin Skin exam: Present: dry, intact Internal Medicine: Result - Labs CBC & Chem 7: 08/17/17 04:27 08/17/17 04:27 Labs: Short CBC 08/17/17 Range/Units 04:27 WBC 7.6 (4.3-11.1) K/mcL Hgb 13.2 (11.5-15.4) g/dL Hct 40.5 (35.3-44.9) % Plt Count 172 (140-400) K/mcL Neutrophils # 6.2 (1.6-8.9) K/mcL BMP 08/17/17 04:27 Sodium 141 Potassium 3.8 Chloride 108 H Carbon Dioxide 28 BUN 17 Creatinine 0.68 Glucose 116 H Calcium 9.9 - ABG Interpretation ABG results: PT/INR, D-dimer D-Dimer 906 ng/mLFEU (0-500) H 08/16/17 07:49 - Impressions Impressions Head CT 08/16/17 13:30 IMPRESSION: No acute intracranial abnormality. D/ / Mac Higgins MD / Mac Higgins MD Interpreting Provider: Mac Higgins MD Consult Discharge Plan - Plan Referrals: Thony Perez Jr, MD [Primary Care Provider] -
[2017-08-17] MEDS: traZODone 50 MG TABLET PO SCH (20:56)
[2017-08-18] MEDS: *HR* Heparin 5,000 UNIT/ML VIAL SQ SCH ×2 (05:58→16:47)
[2017-08-18 06:22] LABS: BUN/Creatinine Ratio 23 (6-26); Blood Urea Nitrogen 19 mg/dL (8-23); Calcium 9.9 mg/dL (8.6-10.3); Carbon Dioxide 29 mEq/L (23-29); Chloride 106 mEq/L (98-107); Glucose 114 mg/dL (70-105); Osmolality,Calculated 295 (280-300); Potassium 3.7 mEq/L (3.5-5.1); Sodium 141 mEq/L (136-145); eGFR For African Americans > 60 (> 60); eGFR For Non-African Americans > 60 (> 60)
[2017-08-18] MEDS: Furosemide 40 MG/4 ML VIAL IVP SCH ×2 (09:16→16:47)
[2017-08-18] MEDS: amLODIPine 5 MG TABLET PO SCH (09:16)
[2017-08-18] MEDS: Aspirin Enteric Coated 81 MG Tablet PO SCH (09:17)
--- NOTE | 2017-08-18 11:51 | Internal Med Progress Note ---
Date of Encounter: 08/18/17 Time of Encounter: 11:51 - Assessment and plan (1) Congestive heart failure (CHF) Current Visit: Yes Status: Acute Assessment and plan: Patient presenting with signs and symptoms of acute congestive heart failure. Mostly diastolic congestive heart failure based on recent echocardiogram findings. Presented with new onset Afib Last ECHO 05/2017 with preserved EF, Mild LVDD, no valvular abnormalities Continue lasix IV BID Fluid restriction diet daily weights Strict I/Os No indication to repeat ECHO at this time Qualifiers: Heart failure type: diastolic Heart failure chronicity: acute Qualified Code(s): I50.31 - Acute diastolic (congestive) heart failure (2) Hypertension Current Visit: Yes Status: Chronic Assessment and plan: continue home meds Qualifiers: Hypertension type: essential hypertension Qualified Code(s): I10 - Essential (primary) hypertension (3) DVT prophylaxis Current Visit: Yes Status: Acute Assessment and plan: With subcutaneous heparin (4) Atrial fibrillation with RVR Current Visit: Yes Status: Resolved Assessment and plan: New onset. No prior history. TSH upper limit of normal Troponin negative X one set Patient has no chest pain HR now controlled, continue metoprolol Continue ASA Hx of diverticular GIB in the past - Time Spent With Patient Total time spent is greater than 50% in coordination of care (as documented) at patient's floor/unit and/or counseling patient: - Subjective Interval history: Seen and examined at bedside 89 F admitted and being managed for acute on chronic CHFpEF She is losing weight per chart I/O inaccurate due to his fusion No new complains - Constitutional Vitals: Temp Pulse Resp BP Pulse Ox 97.4 F L 79 17 135/77 94 08/18/17 11:18 08/18/17 11:18 08/18/17 11:18 08/18/17 11:18 08/18/17 11:18 General appearance: Present: cooperative, A&O X 3, pleasant, no acute distress, answers questions appropriately - Head Head exam: Present: atraumatic, normocephalic - Eye Eye exam: Present: PERRL, conjuntiva pink, sclera anicteric Pupils: Present: PERRL - Neck Neck exam general surgery: Present: supple, trachea midline. Absent: lymphadenopathy - Respiratory Additional comments: few basilar crackles - Cardiovascular Cardiovascular exam: Present: RRR, +S1, +S2. Absent: diastolic murmur, gallop, rubs, systolic murmur - GI/Abdominal GI/Abdominal exam: Present: normal bowel sounds, soft, no peritoneal signs. Absent: distended, tenderness - Extremities Exam Extremities exam: Present: warm, radial pulses palpable and symmetrical. Absent : calf tenderness, cyanotic, pedal edema - Neurological Exam Neurological exam: Present: alert, CN II-XII intact, oriented X3, no focal deficits. Absent: pronater drift, facial droop, speech deficit - Skin Skin exam: Present: dry, intact Internal Medicine: Result - Labs CBC & Chem 7: 08/17/17 04:27 08/18/17 05:32 Labs: BMP 08/18/17 05:32 Sodium 141 Potassium 3.7 Chloride 106 Carbon Dioxide 29 BUN 19 Creatinine 0.81 Glucose 114 H Calcium 9.9 - ABG Interpretation ABG results: PT/INR, D-dimer D-Dimer 906 ng/mLFEU (0-500) H 08/16/17 07:49 Consult Discharge Plan - Plan Referrals: Thony Perez Jr, MD [Primary Care Provider] -
[2017-08-18] MEDS: traZODone 50 MG TABLET PO SCH (20:17)
[2017-08-19] MEDS: *HR* Heparin 5,000 UNIT/ML VIAL SQ SCH ×2 (05:41→17:03)
[2017-08-19] MEDS: Aspirin Enteric Coated 81 MG Tablet PO SCH (07:43)
[2017-08-19] MEDS: amLODIPine 5 MG TABLET PO SCH (07:44)
[2017-08-19] MEDS: Furosemide 40 MG/4 ML VIAL IVP SCH ×2 (07:44→17:03)
[2017-08-19 08:46] LABS: BUN/Creatinine Ratio 26 (6-26); Blood Urea Nitrogen 23 mg/dL (8-23); Calcium 10.5 mg/dL (8.6-10.3); Carbon Dioxide 31 mEq/L (23-29); Chloride 104 mEq/L (98-107); Glucose 131 mg/dL (70-105); Osmolality,Calculated 295 (280-300); Potassium 3.8 mEq/L (3.5-5.1); Sodium 140 mEq/L (136-145); eGFR For African Americans > 60 (> 60); eGFR For Non-African Americans > 60 (> 60)
--- NOTE | 2017-08-19 09:33 | Internal Med Progress Note ---
Date of Encounter: 08/19/17 Time of Encounter: 09:31 - Assessment and plan (1) Congestive heart failure (CHF) Current Visit: Yes Status: Acute Assessment and plan: Patient presenting with signs and symptoms of acute congestive heart failure. Mostly diastolic congestive heart failure based on recent echocardiogram findings. Presented with new onset Afib Last ECHO 05/2017 with preserved EF, Mild LVDD, no valvular abnormalities Change lasix to po, lungs are now CTAB Fluid restriction diet daily weights Strict I/Os No indication to repeat ECHO at this time Qualifiers: Heart failure type: diastolic Heart failure chronicity: acute Qualified Code(s): I50.31 - Acute diastolic (congestive) heart failure (2) Hypertension Current Visit: Yes Status: Chronic Assessment and plan: continue home meds Qualifiers: Hypertension type: essential hypertension Qualified Code(s): I10 - Essential (primary) hypertension (3) DVT prophylaxis Current Visit: Yes Status: Acute Assessment and plan: With subcutaneous heparin (4) Atrial fibrillation with RVR Current Visit: Yes Status: Resolved Assessment and plan: New onset. No prior history. TSH upper limit of normal Troponin negative X one set Patient has no chest pain HR now controlled, continue metoprolol Continue ASA Hx of diverticular GIB in the past - Time Spent With Patient Total time spent is greater than 50% in coordination of care (as documented) at patient's floor/unit and/or counseling patient: - Subjective Interval history: Seen and examined at bedside 89 F admitted and being managed for acute on chronic CHFpEF She is losing weight per chart I/O inaccurate due to his fusion No new complains We will qualify for home O2 today change lasix to po - Constitutional Vitals: Temp Pulse Resp BP Pulse Ox 97.9 F 64 20 131/76 90 08/19/17 07:09 08/19/17 07:09 08/19/17 07:09 08/19/17 07:09 08/19/17 07:09 General appearance: Present: cooperative, A&O X 3, pleasant, no acute distress, answers questions appropriately - Head Head exam: Present: atraumatic, normocephalic - Eye Eye exam: Present: PERRL, conjuntiva pink, sclera anicteric Pupils: Present: PERRL - Neck Neck exam general surgery: Present: supple, trachea midline. Absent: lymphadenopathy - Respiratory Respiratory exam: Present: CTAB. Absent: accessory muscle use, rales, rhonchi, wheezes - Cardiovascular Cardiovascular exam: Present: RRR, +S1, +S2. Absent: diastolic murmur, gallop, rubs, systolic murmur - GI/Abdominal GI/Abdominal exam: Present: normal bowel sounds, soft, no peritoneal signs. Absent: distended, tenderness - Extremities Exam Extremities exam: Present: warm, radial pulses palpable and symmetrical. Absent : calf tenderness, cyanotic, pedal edema - Neurological Exam Neurological exam: Present: alert, CN II-XII intact, oriented X3, no focal deficits. Absent: pronater drift, facial droop, speech deficit - Skin Skin exam: Present: dry, intact Internal Medicine: Result - Labs CBC & Chem 7: 08/17/17 04:27 08/19/17 08:14 Labs: BMP 08/19/17 08:14 Sodium 140 Potassium 3.8 Chloride 104 Carbon Dioxide 31 H BUN 23 Creatinine 0.87 Glucose 131 H Calcium 10.5 H - ABG Interpretation ABG results: PT/INR, D-dimer D-Dimer 906 ng/mLFEU (0-500) H 08/16/17 07:49 Consult Discharge Plan - Plan Referrals: Thony Perez Jr, MD [Primary Care Provider] -
[2017-08-19] MEDS: traZODone 50 MG TABLET PO SCH (22:18)
[2017-08-20] MEDS: *HR* Heparin 5,000 UNIT/ML VIAL SQ SCH (06:05)
--- NOTE | 2017-08-20 06:28 | Electrocardiograph Report ---
[facility] Test Date: 2017-08-16 Pat Name: Kindra Brown Department: 104 Room: 2A12 Gender: F Gericare Aide: : 1925 Requested By: Abhi Marie Order Number: [id number] Reading MD: Jovani Comer Measurements Intervals [place] Rate: 120 P: UT: 0 QRS: 55 QRSD: 93 T: -38 QT: 235 QTc: 306 Interpretive Statements ATRIAL FIBRILLATION WITH RAPID VENTRICULAR RESPONSE NONSPECIFIC ST & T-WAVE ABNORMALITY Electronically Signed On 08-20-2017 6:26:33 EDT by Jovani Comer
[2017-08-20] MEDS: Aspirin Enteric Coated 81 MG Tablet PO SCH (08:32)
[2017-08-20] MEDS: amLODIPine 5 MG TABLET PO SCH (08:32)
[2017-08-20] MEDS ORDERED: Furosemide 20 MG TABLET PO SCH (09:00)
--- NOTE | 2017-08-20 10:43 | Discharge Summary ---
- NOTES TO OUTPATIENT PROVIDER Notes to Outpatient Provider: 89-year-old female who was admitted for acute hypoxic respiratory failure secondary to acute on chronic diastolic CHF, new onset atrial fibrillation with rapid ventricular response. She was managed with intravenous diuretics and she has made appropriate response. She qualified for home oxygen and is discharged on the same. She was on Lasix prior to arrival and is recommended to continue the same at home. She had been started on baby aspirin for atrial fibrillation Date of Encounter: 08/20/17 Time of Encounter: 10:41 - Discharge Diagnosis (1) Congestive heart failure (CHF) Priority: Primary Status: Acute Qualifiers: Heart failure type: diastolic Heart failure chronicity: acute Qualified Code(s): I50.31 - Acute diastolic (congestive) heart failure (2) Hypertension Priority: Secondary Status: Chronic Qualifiers: Hypertension type: essential hypertension Qualified Code(s): I10 - Essential (primary) hypertension (3) DVT prophylaxis Priority: Primary Status: Acute (4) Atrial fibrillation with RVR Priority: Primary Status: Resolved Hospital course: Ms. Brown is a 89 year old female with medical history of CHF with preserved ejection fraction, hypertension, who presented with shortness of breath. She also has a history of prior diverticular GI bleed. Her symptoms have been going on for one week and she reported associated palpitations for 2 weeks. She denied any chest pain on presentation. On evaluation in the ER, chest x- ray showed pulmonary vascular congestion, CT angiogram ruled out pulmonary embolism but showed moderate bilateral pleural effusions, EKG showed A. fib with RVR, complete blood count, chemistry, TSH unremarkable. However BNP was 670. Echocardiogram done in May 2017 showed preserved ejection fraction with mild left ventricular diastolic dysfunction therefore, echocardiogram was repeated. Troponin was negative. The patient was managed with fluid restriction, intravenous diuretics, and daily weights. She was also hypoxic and dependent on oxygen. The patient had been on metoprolol from home prior to arrival and this was continued. Heart rate was controlled with home dose of metoprolol. Patient was started on aspirin for A. fib. She did not qualify for anticoagulation due to history of diverticular bleed in the past. She is seen and examined this morning, she has no new complaints. Her chest is clear to auscultation with no pedal edema, she has lost weight from diuresis. She qualified for oxygen and was discharged on the same. The patient was on Lasix prior to arrival reports that she was taking it as needed for edema, however, she is educated to take Lasix every day. Follow-up with primary care physician. Discharge discussed with: patient, family, nurse - Time Spent with Patient Total time spent providing and/or coordinating discharge services: Greater than 30 minutes - Discharge Medications Prescriptions: Aspirin Enteric Coated [Aspirin EC] 81 mg PO DAILY #30 tablet. Furosemide [Lasix] 20 mg PO DAILY #30 tablet Home Medications: Amlodipine Besylate 10 mg PO DAILY 06/13/16 [History] Losartan Potassium [Cozaar] 50 mg PO DAILY 06/13/16 [History] Metoprolol [Lopressor] 25 mg PO BID 06/13/16 [History] traZODone [TraZODone] 50 mg PO HS 06/13/16 [History] Docusate Sodium [Dok] 200 mg PO HS 06/12/17 [History] Meclizine HCl [Verticalm] 25 mg PO TID PRN 08/16/17 [History] Aspirin Enteric Coated [Aspirin EC] 81 mg PO DAILY #30 tablet. 08/20/17 [Rx] Furosemide [Lasix] 20 mg PO DAILY #30 tablet 08/20/17 [Rx] Allergies/Adverse Reactions: 3 Allergy/AdvReac Type Severity Reaction Status Date / Time No Known Allergies Allergy Verified 06/12/17 18:50 Date of admission: 08/16/17 10:03 Primary care physician: Thony Perez Jr, MD Consults: 08/16/17 10:32 Consult to Cardiac Rehabilitation-Phase1 [CONS] Routine Comment: Reason for Consult: heart failure Call Completed: Yes Consult to Nurse Navigator [CONS] Routine Comment: Discharging clinician: Benito Ball Anticipated date of discharge: 08/20/17 - Constitutional Vitals: Temp Pulse Resp BP Pulse Ox 97.8 F 77 18 118/71 96 08/20/17 06:44 08/20/17 06:44 08/20/17 06:44 08/20/17 06:44 08/20/17 06:44 General appearance: Present: cooperative, A&O X 3, pleasant, no acute distress, answers questions appropriately - Head Head exam: Present: atraumatic, normocephalic - Eye Eye exam: Present: PERRL, conjuntiva pink, sclera anicteric Pupils: Present: PERRL - Neck Neck exam general surgery: Present: supple, trachea midline. Absent: lymphadenopathy - Respiratory Respiratory exam: Present: CTAB. Absent: accessory muscle use, rales, rhonchi, wheezes - Cardiovascular Cardiovascular exam: Present: RRR, +S1, +S2. Absent: diastolic murmur, gallop, rubs, systolic murmur - GI/Abdominal GI/Abdominal exam: Present: normal bowel sounds, soft, no peritoneal signs. Absent: distended, tenderness - Extremities Exam Extremities exam: Present: warm, radial pulses palpable and symmetrical. Absent : calf tenderness, cyanotic, pedal edema - Neurological Exam Neurological exam: Present: alert, CN II-XII intact, oriented X3, no focal deficits. Absent: pronater drift, facial droop, speech deficit - Skin Skin exam: Present: dry, intact - Patient Status Disposition: Home, Self-Care Condition: Good Functional capacity at discharge: uses cane/walker Overall status at discharge: patient is progressing back to baseline - Discharge Instructions Instructions: Furosemide (By mouth), Aspirin (By mouth), Heart Failure (DC), Using Oxygen at Home (DC) Follow Up With: Nely Azevedo STRINGING MACHINE OPERATOR [Advanced Practice Nurse] - 08/27/17 1:00 pm - Diet and Activity Activity: resume usual activities as tolerated, wear oxygen at all times Diet: low salt diet
[2017-08-20 10:59] VITALS: BP 102/66
== END 2017-08-20 13:22 | disposition home or self-care (01) ==
LOC: EMEROO 07:35 → 3BNU 07:35 → SUATTDRO 10:03 → 2ANU 10:09
PROVIDERS: ADMIT Internal Medicine; ATTEND Internal Medicine